=== PATIENT | male | born 1940 | race Caucasian/White ===

== ENCOUNTER 2021-01-20 09:07 | Inpatient (IN) ==
--- NOTE | 2021-01-20 09:34 | Emergency Department Note ---
History of Present Illness General Chief complaint: Cardiac Assessment Stated complaint: CHF Time Seen by Provider: 01/20/21 09:20 Source: patient, family (Son who is at the bedside) and old records reviewed Mode of arrival: ambulatory Limitations: no limitations History of Present Illness Maximum Pain Intensity: 1 This patient is a 80-year-old male who comes in after having a weight gain of about 30 pounds over the last week or so. He says he is "swelling up. He was seen by his doctors PA and they sent him to the emergency department for admission. He is on Lasix he has not missed any dosages. His legs have gotten increasing swollen. His left leg is normally swollen chronically but it is twice the size is normal the right side leg is not normally swollen but now it swollen as well. Noted shortness of breath at rest but he has dyspnea on exertion particular when he bends and tries to tie his shoes. Denies abdominal pain. No blood or melena stool no fall or trauma. His abdomen is distended but not tender. Home Medications Medication Instructions Recorded Confirmed Type aspirin 81 mg tablet,delayed 81 mg PO DAILY tab 07/26/19 01/20/21 History release atorvastatin 10 mg tablet 10 mg PO DAILY #90 tab 07/26/19 01/20/21 History amiodarone 200 mg tablet 200 mg PO DAILY 06/05/20 01/20/21 History carvedilol 3.125 mg tablet 3.125 mg PO BID 06/05/20 01/20/21 History lisinopril 2.5 mg tablet 2.5 mg PO DAILY 06/05/20 01/20/21 History nitroglycerin 0.4 mg sublingual 0.4 mg SL Q5M PRN 06/05/20 01/20/21 History tablet cholecalciferol (vitamin D3) 25 1,000 unit PO DAILY cap 07/14/20 01/20/21 History mcg (1,000 unit) capsule furosemide 40 mg tablet 40 mg PO DAILY #90 tab 07/30/20 01/20/21 Rx cyanocobalamin (vitamin B-12) 500 mcg PO DAILY 01/20/21 01/20/21 History [Vitamin B-12] diphenhydramine-acetaminophen 1 tab PO HS PRN 01/20/21 01/20/21 History [Tylenol PM Extra Strength] oljasynd-xye-BA-lycopen-lutein 1 tab PO DAILY 01/20/21 01/20/21 History [Centrum Silver Men] omega-3 fatty acids [[place] 3] 1,000 mg PO DAILY 01/20/21 01/20/21 History vitamin B complex 1 tab PO DAILY 01/20/21 01/20/21 History Allergies Allergy/AdvReac Type Severity Reaction Status Date / Time No Known Allergies Allergy Verified 01/20/21 10:16 Past Med/Surg History Medical History (Updated 01/20/21 @ 16:35 by Mitch Carter MD) Cardiac arrest 09/2020 Coronary artery disease Dyslipidemia ICD (implantable cardioverter-defibrillator) in place Surgical History (Updated 01/20/21 @ 11:01 by Geraldo Connelly MD) History of arthroscopy of left knee History of inguinal hernia repair, bilateral History of umbilical hernia repair S/P aortic valve replacement with bioprosthetic valve Status post aorto-coronary artery bypass graft 1998 Social History (Updated 01/20/21 @ 11:02 by Geraldo Connelly MD) Smoking Status: Never smoker Hx Alcohol Use: No Hx Substance Use: No Preferred Language: [place] Zealander Communication Ability: Effective [place] Technician Required: No Beliefs That Will Affect Care: None Current Living Situation: Spouse Other Information That Helps Us Care for You: No Feels Safe at Home: Yes Safety Concerns: Feels Safe At This Time Assistive Devices: Cane, Glasses and Special Shoe Immunizations: Past medical history includes CHF. He is on chronic anticoagulation, he has a pacemaker. History lives at home independently Review of Systems A total of 10 systems reviewed and were otherwise negative Physical Exam Vital Signs Vital Signs - 24 hr 01/20/21 09:12 01/20/21 09:28 01/20/21 09:30 Temperature 36.5 C Temperature Source Oral Pulse Rate 103 H 60 60 Respiratory Rate 24 15 14 Blood Pressure 114/57 L Blood Pressure Mean 76 Pulse Oximetry 97 97 Oxygen Delivery Method Room Air Room Air Sepsis Recent Fever Within 48 Hours No Sepsis New/Unexplained Change in Mental Status No Sepsis Action Taken by Nursing No Action Required 01/20/21 10:00 01/20/21 10:30 Temperature Temperature Source Pulse Rate 60 60 Respiratory Rate 14 15 Blood Pressure Blood Pressure Mean Pulse Oximetry Oxygen Delivery Method Sepsis Recent Fever Within 48 Hours Sepsis New/Unexplained Change in Mental Status Sepsis Action Taken by Nursing General: Well developed well nourished older male who appears in no acute distress, breathing comfortably on room air. Normal speech HEENT: Normal cephalic atraumatic. Pupils are equal round and reactive to light. Extraocular movements are intact. Oropharynx is pink with moist mucous membranes. No swelling of the mouth lips or tongue. Neck: Supple with a midline trachea. No meningeal signs or stiffness, no JVD or bruits. No Stridor. Chest: Clear to auscultation bilaterally. No wheezes or rhonchi. No increased work of breathing. Pacemaker in left chest Heart: Regular rate and rhythm without murmurs or gallops. Abdomen: Soft nontender,. He is diffusely distended with a ventral hernia that is easily reducible and not red or warm or tender. Without rebound guarding or rigidity. No peritonitis Extremities: No cyanosis clubbing he has significant bilateral lower extremity edema left greater than right which is chronic. There is chronic skin breakdown and some mild redness of his lopez on the left with some oozing of clear fluid Spine/Back. Non tender to palpation. No CVA tenderness Skin: Good turgor without rashes. Neurologic exam: Cranial nerves two through 12 are intact. Motor and sensation are intact and symmetrical throughout. Course Administered Medications Discontinued Medications Furosemide (Furosemide 40 Mg/4 Ml Vial) 40 mg IV NOW STA Stop: 01/20/21 10:33 Last Admin: 01/20/21 13:12 Dose: 40 mg Documented by: [id number] Furosemide (Furosemide 40 Mg/4 Ml Vial) Confirm Administered Dose 40 mg IV .STK- MED ONE Stop: 01/20/21 13:11 Last Admin: 01/20/21 13:12 Dose: Not Given Documented by: [id number] Medical Decision Making Differential Diagnosis CHF, acute coronary syndrome, arrhythmia, infection, electrolyte or metabolic abnormality Medical Records Attestation: I reviewed the patient's medical records. Home Medications Current Medication List: was personally reviewed by me Laboratory Data Attestation: I reviewed the patient's lab results. Result diagrams: 01/20/21 09:28 01/20/21 09:28 Lab Results 01/20/21 01/20/21 01/20/21 Range/Units 09:28 09:28 09:28 WBC 7.47 (4.8-10.8) K/uL RBC 3.29 L (4.7-6.1) M/uL Hgb 11.7 L (14.0-18.0) g/dL Hct 35.2 L (42-52) % MCV 107.0 H (80-100) fL MCH 35.6 H (25-34) pg MCHC 33.2 (32-36) g/dL RDW Std Deviation 58.2 H (36.4-46.3) fL RDW Coeff of Patricia 14.8 H (11.5-14.5) % Plt Count 166 (130-400) K/uL MPV 11.0 H (7.4-10.4) fL Immature Gran % (Auto) 0.1 % Neut % (Auto) 72.4 % Lymph % (Auto) 13.4 % [place] % (Auto) 10.8 % Eos % (Auto) 3.2 % Baso % (Auto) 0.1 % Neut # (Auto) 5.40 (1.4-6.5) K/uL Lymph # (Auto) 1.00 L (1.2-3.4) K/uL [place] # (Auto) 0.81 H (0.11-0.59) K/uL Eos # (Auto) 0.24 (0-0.5) K/uL Baso # (Auto) 0.01 (0-0.2) K/uL Immature Gran # (Auto) 0.01 (0.00-0.02) K/uL PT 10.8 (9.0-12.0) Seconds INR 1.1 (0.9-1.1) APTT 28.6 (21.0-31.0) Seconds PTT Ratio 1.1 Sodium 140 (136-145) mmol/L Potassium 5.1 (3.5-5.1) mmol/L Chloride 110 H (98-107) mmol/L Carbon Dioxide 26 (21-32) mmol/L Anion Gap 4.0 (3-11) BUN 52 H (7-18) mg/dl Creatinine 2.43 H (0.6-1.4) mg/dl Est Cr Clr Drug Dosing 30.5 ml/min Est GFR ( Amer) 27.6 Est GFR (Non-Af Amer) 23.9 BUN/Creatinine Ratio 21.6 H (10-20) Glucose 87 (70-99) mg/dl Calcium 8.6 (8.5-10.1) mg/dl Total Bilirubin 0.6 (0.2-1) mg/dl AST 26 (15-37) U/L ALT 16 (12-78) U/L Alkaline Phosphatase 98 (45-117) U/L Troponin I < 0.015 (0-0.045) ng/ml NT-Pro-B Natriuret Pep 3438 H (0-1800) pg/ml Total Protein 6.4 (6.4-8.2) gm/dl Albumin 3.0 L (3.4-5.0) gm/dl Globulin 3.4 (2.5-4.0) gm/dl Albumin/Globulin Ratio 0.9 (0.9-2) TSH (0.300-4.500) uIu/ml Free T4 (0.8-1.6) ng/dl Random Cortisol mcg/dl 01/20/21 01/20/21 Range/Units 09:28 09:28 WBC (4.8-10.8) K/uL RBC (4.7-6.1) M/uL Hgb (14.0-18.0) g/dL Hct (42-52) % MCV (80-100) fL MCH (25-34) pg MCHC (32-36) g/dL RDW Std Deviation (36.4-46.3) fL RDW Coeff of Patricia (11.5-14.5) % Plt Count (130-400) K/uL MPV (7.4-10.4) fL Immature Gran % (Auto) % Neut % (Auto) % Lymph % (Auto) % [place] % (Auto) % Eos % (Auto) % Baso % (Auto) % Neut # (Auto) (1.4-6.5) K/uL Lymph # (Auto) (1.2-3.4) K/uL [place] # (Auto) (0.11-0.59) K/uL Eos # (Auto) (0-0.5) K/uL Baso # (Auto) (0-0.2) K/uL Immature Gran # (Auto) (0.00-0.02) K/uL PT (9.0-12.0) Seconds INR (0.9-1.1) APTT (21.0-31.0) Seconds PTT Ratio Sodium (136-145) mmol/L Potassium (3.5-5.1) mmol/L Chloride (98-107) mmol/L Carbon Dioxide (21-32) mmol/L Anion Gap (3-11) BUN (7-18) mg/dl Creatinine (0.6-1.4) mg/dl Est Cr Clr Drug Dosing ml/min Est GFR ( Amer) Est GFR (Non-Af Amer) BUN/Creatinine Ratio (10-20) Glucose (70-99) mg/dl Calcium (8.5-10.1) mg/dl Total Bilirubin (0.2-1) mg/dl AST (15-37) U/L ALT (12-78) U/L Alkaline Phosphatase (45-117) U/L Troponin I (0-0.045) ng/ml NT-Pro-B Natriuret Pep (0-1800) pg/ml Total Protein (6.4-8.2) gm/dl Albumin (3.4-5.0) gm/dl Globulin (2.5-4.0) gm/dl Albumin/Globulin Ratio (0.9-2) TSH 241.000 H (0.300-4.500) uIu/ml Free T4 0.20 L (0.8-1.6) ng/dl Random Cortisol 21.04 mcg/dl Imaging Data Attestation: I personally reviewed and interpreted this imaging study as follows: My Impression: Chest xray: CHF with pleural effusions Radiologist's Impression: XR chest 1V portable CLINICAL HISTORY: Atypical chest pain COMPARISON STUDY: No previous studies for comparison. FINDINGS: The heart is enlarged. There are postsurgical changes of a midline sternotomy. There is a left subclavian pacer/defibrillator present. There is mild residual thickening likely secondary to mild pulmonary vascular congestion. Small bilateral pleural effusions are present. There are basilar opacities likely representing compressive atelectasis although an infectious/inflammatory processes could appear similar[ IMPRESSION: 1. Cardiac megaly and radiographic evidence of mild congestive failure/fluid overload with small bilateral pleural effusions 2. Basilar opacity statistically representing compressive atelectasis ECG Data Attestation: I personally reviewed and interpreted this ECG as follows: Indication: + SOB/dyspnea and + weakness Rate (beats per minute): 60 Rhythm: + other (Ventricular paced rhythm) ECG Intervals/blocks: + IVCD ECG Campbell: + Normal ECG ST segments: + Normal ST segments ECG Findings: no PACs and no PVCs Comparison ECG Date: from (12/11/03) Change: the following changes noted (Paced rhythm has replaced normal sinus) MDM Narrative This patient comes in as described above. He was placed on a services engineer in room A3. Is here for treatment and evaluation of lower extremity edema and weight gain. He appears fluid overloaded. IV access was established, EKG ,chest x-ray and blood work was obtained. He was reassessed frequently. He was noted to be in congestive heart failure. His creatinine is also elevated at 2.43. He has nothing chest acute coronary syndrome. He was given Lasix 40 mg IV. I discussed case with Dr. Geraldo Connelly who will admit the patient for further inpatient treatment and evaluation. Continuous cardiac monitoring: Order was placed in the EMR for continuous cardiac monitoring Impression & Plan CHF (congestive heart failure), Lower extremity edema, Pacemaker, Acute renal insufficiency Discharge Plan Visit Data Chief Complaint: Cardiac Assessment Stated Complaint: CHF ED Provider: Mitch Carter Discharge Problem: CHF (congestive heart failure), Lower extremity edema, Pacemaker, Acute renal insufficiency Patient Disposition: Admitted As Inpatient Discharge Instructions Interventions: ED Discharge Assessment Last Done: 01/20/21 13:24 Discharge Problem: CHF (congestive heart failure) Qualifiers: Heart failure type: unspecified Heart failure chronicity: acute on chronic Qualified Code(s): I50.9 - Heart failure, unspecified
[2021-01-20 09:48] LABS: Basophils # (auto) 0.01 K/uL (0-0.2); Basophils % (auto) 0.1 %; Eosinophils # (auto) 0.24 K/uL (0-0.5); Eosinophils % (auto) 3.2 %; Hematocrit (blood only) 35.2 % (42-52); Hemoglobin 11.7 g/dL (14.0-18.0); Immature Granulocytes # (auto) 0.01 K/uL (0.00-0.02); Immature Granulocytes % (auto) 0.1 %; Lymphocytes % (auto) 13.4 %; Mean Corpuscular Hemoglobin 35.6 pg (25-34); Mean Corpuscular Hgb Conc 33.2 g/dL (32-36); Monocytes # (auto) 0.81 K/uL (0.11-0.59); Monocytes % (auto) 10.8 %; Neutrophils % (auto) 72.4 %; Platelet Count 166 K/uL (130-400); RDW Coefficient of Variation 14.8 % (11.5-14.5); RDW Standard Deviation 58.2 fL (36.4-46.3); Red Blood Count 3.29 M/uL (4.7-6.1); White Blood Count 7.47 K/uL (4.8-10.8)
--- NOTE | 2021-01-20 09:53 | XRay Report ---
XR chest 1V portable CLINICAL HISTORY: Atypical chest pain COMPARISON STUDY: No previous studies for comparison. FINDINGS: The heart is enlarged. There are postsurgical changes of a midline sternotomy. There is a l eft subclavian pacer/defibrillator present. There is mild residual thickening likely secondary to mil d pulmonary vascular congestion. Small bilateral pleural effusions are present. There are basilar opa cities likely representing compressive atelectasis although an infectious/inflammatory processes coul d appear similar[ IMPRESSION: 1. Cardiac megaly and radiographic evidence of mild congestive failure/fluid overload with small bila teral pleural effusions 2. Basilar opacity statistically representing compressive atelectasis ACT 112: Negative or not required by law. Electronically signed by: Roney Casas M.D. 01/20/2021 9:52 AM
[2021-01-20 10:02] LABS: INR 1.1 (0.9-1.1); Partial Thromboplastin Ratio 1.1; Partial Thromboplastin Time 28.6 Seconds (21.0-31.0); Prothrombin Time 10.8 Seconds (9.0-12.0)
[2021-01-20 10:03] LABS: Alanine Aminotransferase 16 U/L (12-78); Aspartate Aminotransferase 26 U/L (15-37); BUN Creatinine Ratio 21.6 (10-20); Blood Urea Nitrogen 52 mg/dl (7-18); Calcium 8.6 mg/dl (8.5-10.1); Carbon Dioxide 26 mmol/L (21-32); Chloride 110 mmol/L (98-107); Creatinine Clr Calc Pharmacy 30.5 ml/min; Est GFR (African American) 27.6; Est GFR (Non-African American) 23.9; Glucose 87 mg/dl (70-99); Potassium 5.1 mmol/L (3.5-5.1); Sodium 140 mmol/L (136-145)
[2021-01-20 10:08] LABS: Albumin Globulin Ratio 0.9 (0.9-2); Alkaline Phosphatase 98 U/L (45-117); Bilirubin,Total 0.6 mg/dl (0.2-1); Globulin 3.4 gm/dl (2.5-4.0); NT Pro B Type Natriuretic Pept 3438 pg/ml (0-1800); Total Protein 6.4 gm/dl (6.4-8.2); Troponin I < 0.015 ng/ml (0-0.045)
[2021-01-20] MEDS ORDERED: FUROSEMIDE 40 MG/4 ML VIAL IV STA (10:32)
--- NOTE | 2021-01-20 10:38 | History & Physical Report ---
Date of Service January 20, 2021 Assessment & Plan (1) Acute on chronic heart failure with preserved ejection fraction: Lasix 40 mg IV twice daily Daily weights Strict I's and O's Low-sodium, heart healthy, fluid restriction 1200 mL Consult cardiology and heart failure clinic (2) Acute kidney injury: Renal ultrasound negative for obstructive cause. UA + protein/Cr ratio pending Suspected cardiopulmonary (3) Primary hypothyroidism: New onset. Suspect secondary to amiodarone use. No myxedema coma signs or symptoms. Discussed with Dr Souza, recommended IV levothyroxine initially due to poor gut absorption with 12.5 IV mcg, switch to 25mcg PO daily once more euvolemic and discharge on 50 mcg daily Follow up TSH, free T4 in 4-6 weeks. (4) Ascites: Significant ascites appears out of proportion to other fluid overload will get ultrasound of his liver to rule out cirrhotic contribution to hypervolemia Will defer ascitic tap on admission as long as liver US unremarkable (5) Venous ulcer of lower extremity without varicose veins: Area marked to assess for increasing erythema suggestive of cellulitis Blood cultures taken (6) Edema of left lower extremity: L > R due to venous graft taken from this side Generalized anasarca favors liver/renal etiology as cause of hypervolemia (7) Coronary artery disease: Continue aspirin, carvedilol, atorvastatin. Lisinopril on hold due to acute renal failure (8) Dyslipidemia: Continue atorvastatin 10 mg p.o. daily (9) Macrocytic anemia: B12 and folate with a.m. 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 He reports increasing shortness of breath and fatigue for the past 2-3 weeks. Associated weight gain of 30-35 lb increase over same time period, bilateral leg swelling and abdominal distension. His left leg is usually larger than his right ever since his venous bypass graft was taken from that side. No chest pain, orthopnea, PND or palpitations. No fever, chills He also notes a water blister that appeared on his left lower extremity. Unknown how long he had this. His peeled off the skin 4 days ago and it has started forming granulation tissue around this. No significant worsening of erythema surrounding this, it does no track up leg but some spread of erythema with gravity posteriorly. Area marked in the ER. In the ER labs were concerning for EVETTE with CXR showing evidence of mild CHF. He was referred to medicine for admission and ongoing management of EVETTE, hypervolemia. Allergies Allergy/AdvReac Type Severity Reaction Status Date / Time No Known Allergies Allergy Verified 01/20/21 10:16 Home Medications Medication Instructions Recorded Confirmed Type aspirin 81 mg tablet,delayed 81 mg PO DAILY tab 07/26/19 01/20/21 History release atorvastatin 10 mg tablet 10 mg PO DAILY #90 tab 07/26/19 01/20/21 History amiodarone 200 mg tablet 200 mg PO DAILY 06/05/20 01/20/21 History carvedilol 3.125 mg tablet 3.125 mg PO BID 06/05/20 01/20/21 History lisinopril 2.5 mg tablet 2.5 mg PO DAILY 06/05/20 01/20/21 History nitroglycerin 0.4 mg sublingual 0.4 mg SL Q5M PRN 06/05/20 01/20/21 History tablet cholecalciferol (vitamin D3) 25 1,000 unit PO DAILY cap 07/14/20 01/20/21 History mcg (1,000 unit) capsule furosemide 40 mg tablet 40 mg PO DAILY #90 tab 07/30/20 01/20/21 Rx cyanocobalamin (vitamin B-12) 500 mcg PO DAILY 01/20/21 01/20/21 History [Vitamin B-12] diphenhydramine-acetaminophen 1 tab PO HS PRN 01/20/21 01/20/21 History [Tylenol PM Extra Strength] myigxoko-ezw-NO-lycopen-lutein 1 tab PO DAILY 01/20/21 01/20/21 History [Centrum Silver Men] omega-3 fatty acids [[place] 3] 1,000 mg PO DAILY 01/20/21 01/20/21 History vitamin B complex 1 tab PO DAILY 01/20/21 01/20/21 History Past Med/Surg History Medical History (Updated 01/20/21 @ 16:35 by Mitch Carter MD) Cardiac arrest 09/2020 Coronary artery disease Dyslipidemia ICD (implantable cardioverter-defibrillator) in place Surgical History (Updated 01/20/21 @ 11:01 by Geraldo Connelly MD) History of arthroscopy of left knee History of inguinal hernia repair, bilateral History of umbilical hernia repair S/P aortic valve replacement with bioprosthetic valve Status post aorto-coronary artery bypass graft 1998 Social History (Updated 01/20/21 @ 11:02 by Geraldo Connelly MD) Smoking Status: Never smoker Hx Alcohol Use: No Hx Substance Use: No Preferred Language: Frisian Communication Ability: Effective Recruiting Assistant Required: No Beliefs That Will Affect Care: None Current Living Situation: Spouse Other Information That Helps Us Care for You: No Feels Safe at Home: Yes Safety Concerns: Feels Safe At This Time Assistive Devices: Walker Review of Systems Review of Systems: All systems reviewed & are unremarkable except as noted in HPI & below Genitourinary: no dysuria, no difficulty urinating, no urinary frequency, no urinary hesitancy and no decreased urination Physical Exam Constitutional: well developed and well nourished; no acute distress Eyes: PERRL, conjunctivae normal, anicteric sclerae ENMT: external ear and nose normal, oropharynx normal Neck: trachea midline Thyroid: no thyromegaly Respiratory: normal respiratory effort; no respiratory distress Auscultation: + diminished lung sounds (bibasal); no crackles and no wheezes Cardiovascular: Rate/Rhythm: regular rate and regular rhythm Heart Sounds: no murmur Vessels: + JVD Extremities: normal capillary refill, + pedal edema (L 3+ > R 2+ to abdomen) and + edema (Generalized anasarca) Gastrointestinal (Abdomen): Inspection/Auscultation: + abdomen distended and normal bowel sounds Percussion/Palpation: abdomen soft; abdomen nontender, no guarding and abdomen not rigid Musculoskeletal: no cyanosis or clubbing, extremities motor strength 5/5 (limited movement of LLE due to size) Skin: + ulcer (granulation tissue over 5cm circular ulcer LLE) and + erythema (mild surrounding LLE ulcer marked, tracking with gravity only) Neurologic: moves all extremities and awake; not confused Psychiatric: A+Ox3, euthymic affect Genitourinary: no CVA tenderness Results & Data Results & Data ([facility]) Vital Signs (Past 12 Hours) Vital Signs Temp Pulse Resp BP Pulse Ox 01/20/21 09:30 97 01/20/21 09:12 36.5 C 103 H 24 114/57 L 97 Diagnostic Findings XR chest 1V portable IMPRESSION: 1. Cardiac megaly and radiographic evidence of mild congestive failure/fluid overload with small bilateral pleural effusions 2. Basilar opacity statistically representing compressive atelectasis Medications Administered ER Medications given: None ECG Indication: SOB/dyspnea Rate (beats per minute): 60 Findings: + other, + paced rhythm (Ventricular-paced) and + prolonged QT (518 ms) Comparison ECG Date: from (Dec 11, 2003) Change: the following changes noted (Paced rhythm replaced sinus rhythm) Code Status & VTE Plan Code Status Full VTE Prophylaxis Plan VTE Prophylaxis will be ordered: Yes PG Care Time/CCT Total # of Minutes Spent Total Time Spent with Patient: Total time spent is greater than 50% in coordination of care (as documented) at patient's floor/unit and/or counseling patient: Coding Level of Care Code 78703 Initial Inpt Care Lvl 3 Diagnoses Acute on chronic heart failure with preserved ejection fraction I50.33 Acute kidney injury N17.9 Primary hypothyroidism E03.9 Ascites R18.8 Venous ulcer of lower extremity without varicose veins I87.2; L97.909 Edema of left lower extremity R60.0 Coronary artery disease I25.10 Dyslipidemia E78.5 Macrocytic anemia D53.9 Renal cyst, right N28.1 Abnormal ultrasound of bladder R93.41 DVT prophylaxis Z29.9
[2021-01-20 12:17] LABS: T4 Free Thyroxine 0.2 ng/dl (0.8-1.6)
--- NOTE | 2021-01-20 12:27 | Ultrasound Report ---
US venous doppler LE LT CLINICAL HISTORY: Left leg swelling COMPARISON STUDY: No previous studies for comparison. FINDINGS: Real-time and color flow Doppler imaging were performed. Flow was seen within the femoral, popliteal and calf veins with no intraluminal thrombus demonstrated. The saphenous vein is patent.. T here is a left popliteal cyst measuring 76 x 36 x 20 mm. There is prominent superficial edema within the left leg. IMPRESSION: 1. No evidence of left lower extremity DVT. 2. Left popliteal cyst ACT 112: Negative or not required by law. Electronically signed by: Roney Casas M.D. 01/20/2021 12:25 PM
--- NOTE | 2021-01-20 12:35 | Ultrasound Report ---
EXAMINATION: RENAL ULTRASOUND CLINICAL HISTORY: Acute renal insufficiency COMPARISON STUDY: FINDINGS: The right kidney measures 7.4 cm. The left kidney measures 10.8 cm. There is no evidence o f hydronephrosis. There is a 4.5 cm right renal cyst Neither ureteral jet was visualized. There is a 19 mm nonspecific posterior bladder nodule. There is moderate ascites. IMPRESSION : 1. Moderate ascites 2. No evidence of hydronephrosis 3. 4.5 cm right renal cyst 4. Nonspecific 19 mm posterior bladder nodule. ACT 112: Negative or not required by law. Electronically signed by: Roney Casas M.D. 01/20/2021 12:34 PM
[2021-01-20] MEDS ORDERED: FUROSEMIDE 40 MG/4 ML VIAL IV ONE (13:10)
[2021-01-20] MEDS ORDERED: ACETAMINOPHEN 325 MG TAB PO PRN (14:03)
--- NOTE | 2021-01-20 14:49 | XCELERA ---
[id number]
--- NOTE | 2021-01-20 15:26 | Electrocardiogram Report ---
Test Reason : Blood Pressure : / mmHG Vent. Rate : 060 BPM Atrial Rate : 052 BPM P-R Int : 000 ms QRS Dur : 164 ms QT Int : 518 ms P-R-T Axes : 000 037 241 degrees QTc Int : 518 ms Ventricular-paced rhythm Abnormal ECG When compared with ECG of 11-DEC-2003 07:34, Electronic ventricular pacemaker has replaced Sinus rhythm Confirmed by Jose Hernandez [id number] on 01/20/2021 3:25:57 PM Referred By: Jose Hernandez Confirmed By:Jose Hernandez
[2021-01-20] MEDS ORDERED: FUROSEMIDE 40 MG/4 ML VIAL IV SCH (17:00)
[2021-01-20] MEDS ORDERED: LEVOTHYROXINE SODIUM 12.5 MCG in SYRINGE 0 ML IV ONE (17:15)
[2021-01-20] MEDS: FUROSEMIDE 40 MG in SYRINGE 0 ML IV SCH (17:39)
[2021-01-20] MEDS ORDERED: ACETAMINOPHEN 500 MG TAB PO PRN (21:00)
[2021-01-20] MEDS ORDERED: diphenhydrAMINE Capsule 25 MG CAP PO PRN (21:00)
[2021-01-20 21:01] LABS: Appearance Urine Clear (Clear); Bilirubin Urine Negative (Negative); Blood Urine Negative (Negative); Color Urine Yellow; Glucose Urine UA Negative (Negative); Ketones Urine Negative (Negative); Leukocyte Esterase Urine Negative (Negative); Nitrite Urine Negative (Negative); Protein Urine Negative (Negative); Specific Gravity Urine 1.011 (1.000-1.030); Urobilinogen Urine Negative (Negative)
[2021-01-20 21:18] LABS: Total Protein Urine Random < 5.0 mg/dl (0-11.9)
[2021-01-20] MEDS: carvediloL 3.125 MG TAB PO SCH (22:19)
[2021-01-20] MEDS: HEPARIN SOD 5,000 UNIT/0.5 ML VIAL SQ SCH (22:19)
[2021-01-21] MEDS: HEPARIN SOD 5,000 UNIT/0.5 ML VIAL SQ SCH (06:29)
--- NOTE | 2021-01-21 07:18 | Ultrasound Report ---
US liver HISTORY: 80 years-old Male ascites acute right upper quadrant abdominal pain with ascites COMPARISON: Renal ultrasound of same day TECHNIQUE: Multiple real-time sonographic images of the abdominal right upper quadrant were obtained assessing grayscale appearance and color flow FINDINGS: Pancreas is obscured by bowel gas. There is suggestion of a transient reducible upper abdominal wall bowel containing hernia within the upper mid abdomen. Cirrhotic morphology of the liver. No hepatic m ass lesion identified. Common bile duct is normal measuring 4 mm. No intrahepatic delayed ductal dila tion. Mildly contracted gallbladder wall measuring in the upper limits of normal at 3 mm. No shadowin g cholelithiasis. Sonographic Cuellar sign reported as negative. Moderate abdominal ascites. There is a cyst of the inferior pole right kidney measuring 4.5 cm. No hydronephrosis. IMPRESSION: 1. Cirrhotic liver with moderate abdominal ascites. 2. No cholelithiasis or sonographic evidence of acute cholecystitis. 3. No biliary ductal dilation. ACT 112: Negative or not required by law. The above report was generated using voice recognition software. It may contain grammatical, syntax o r spelling errors. Electronically signed by: Chris Degroot M.D. 01/21/2021 7:16 AM
[2021-01-21 07:21] LABS: Basophils # (auto) 0.01 K/uL (0-0.2); Basophils % (auto) 0.2 %; Eosinophils # (auto) 0.18 K/uL (0-0.5); Eosinophils % (auto) 3.8 %; Hematocrit (blood only) 34.7 % (42-52); Hemoglobin 11.9 g/dL (14.0-18.0); Immature Granulocytes # (auto) 0.01 K/uL (0.00-0.02); Immature Granulocytes % (auto) 0.2 %; Lymphocytes % (auto) 14.7 %; Mean Corpuscular Hemoglobin 36.4 pg (25-34); Mean Corpuscular Hgb Conc 34.3 g/dL (32-36); Mean Corpuscular Volume 106.1 fL (80-100); Mean Platelet Volume 11.1 fL (7.4-10.4); Monocytes # (auto) 0.45 K/uL (0.11-0.59); Monocytes % (auto) 9.5 %; Neutrophils % (auto) 71.6 %; Platelet Count 120 K/uL (130-400); RDW Coefficient of Variation 14.9 % (11.5-14.5); RDW Standard Deviation 58.3 fL (36.4-46.3); Red Blood Count 3.27 M/uL (4.7-6.1); White Blood Count 4.75 K/uL (4.8-10.8)
--- NOTE | 2021-01-21 07:28 | Ultrasound Report ---
ULTRASOUND OF THE THYROID GLAND CLINICAL HISTORY: Hypothyroidism. COMPARISON STUDY: No priors. TECHNIQUE: Real-time, grayscale, and color flow sonography of the thyroid gland is performed utilizin g a high-frequency linear transducer. Images are reviewed in the transverse and longitudinal planes. FINDINGS: Right lobe: The right lobe of the thyroid gland is normal in size and homogeneous in echotexture, kelsea suring 5.0 x 2.6 x 2.1 cm. No significant hyperemia is seen on color imaging. Left lobe: The left lobe of the thyroid gland is normal in size and homogeneous in echotexture, measu ring 4.2 x 1.8 x 2.1 cm. No significant hyperemia is seen on color imaging. Isthmus: The thyroid isthmus is thickened, measuring 0.8 cm in AP diameter. IMPRESSION: Unremarkable sonographic evaluation of the thyroid gland. ACT 112: Negative or not required by law. Electronically signed by: Beto Goldman M.D. 01/21/2021 7:27 AM
[2021-01-21] MEDS: CYANOCOBALAMIN 500 MCG TABLET (VITAMIN B-12) PO SCH (07:42)
[2021-01-21] MEDS: FUROSEMIDE 40 MG in SYRINGE 0 ML IV SCH ×2 (07:42→19:31)
[2021-01-21] MEDS: VITAMIN B COMPLEX TAB PO SCH (07:43)
[2021-01-21] MEDS: OMEGA-3 (PURIFIED FISH OIL) 1 GM CAP PO SCH (07:43)
[2021-01-21] MEDS: ATORVASTATIN 10 MG TAB PO SCH (07:43)
[2021-01-21] MEDS: ASPIRIN 81 MG ECTAB PO SCH (07:43)
[2021-01-21] MEDS: CHOLECALCIFEROL 1,000 UNITS 25 MCG TAB PO SCH (07:43)
[2021-01-21] MEDS: carvediloL 3.125 MG TAB PO SCH ×2 (07:43→21:14)
[2021-01-21] MEDS: CEROVITE ADV FORMULA TAB PO SCH (07:43)
[2021-01-21 07:56] LABS: BUN Creatinine Ratio 22.8 (10-20); Calcium 8.8 mg/dl (8.5-10.1); Est GFR (African American) 28.9
[2021-01-21 08:19] LABS: Folate (Folic Acid) 11.2 ng/ml (>5.38)
[2021-01-21] MEDS ORDERED: AMIODARONE 200 MG TAB PO SCH (09:00)
[2021-01-21] MEDS ORDERED: FUROSEMIDE 40 MG in SYRINGE 0 ML IV SCH (09:00)
[2021-01-21] MEDS ORDERED: FUROSEMIDE 40 MG/4 ML VIAL IV SCH (09:00)
--- NOTE | 2021-01-21 10:02 | Cardiology Progress Note ---
Date of Service January 21, 2021 Assessment & Plan (1) Acute on chronic systolic (congestive) heart failure: -diuresing on Lasix 40 mg IV b.i.d.. -subjectively improved. -continue carvedilol, consider up titration during this hospitalization. (2) Coronary artery disease: -s/p CABG x1 in February 1999 -basal inferior wall motion abnormality noted on echocardiogram. -continue aspirin and atorvastatin (3) Ischemic cardiomyopathy: -ejection fraction mildly depressed at 45-50%. -lisinopril currently on hold due to renal insufficiency. (4) S/P aortic valve replacement with bioprosthetic valve: -bioprosthetic aortic valve and ascending thoracic aortic repair in February 1999. -properly functioning prosthesis on current echocardiogram. (5) ICD (implantable cardioverter-defibrillator) in place: -placed in September 2019 in [place]. -proper function in device Clinic August 2020. -placed for presumed ventricular dysrhythmia, details unknown. Admission and Anticipated Discharge Date Admission Date: January 20, 2021 Subjective The patient is resting comfortably in bed complaints of chest pain or dyspnea. Was able to ambulate to the bathroom today minimal difficulty. Claims to have lost 13 lb since admission. Physical Exam Physical Exam: There is 1+ sacral edemaIn general this is a well-developed well-nourished white male in no acute distress. HEENT exam is negative. Neck reveals normal carotid upstrokes and transmitted murmur to the right carotid. No JVD. There is no thyromegaly. Cardiovascular exam reveals a regular rhythm with a 1/6 basal systolic ejection murmur. Valve sounds are crisp. No diastolic murmurs. Chest reveals a well-healed midline scar. Lungs are clear without rales, rhonchi, or wheezes. Abdomen is soft without bruits. There is 1+ sacral edema. Extremities reveal significant pitting and nonpitting edema of the left lower extremity. Several dressings noted on the left lower extremity. There is 1+ thigh edema bilaterally. Results & Data ([facility]) Vital Signs (Past 12 Hours) Vital Signs Temp Pulse Pulse Resp BP Pulse Ox 01/21/21 06:57 36.3 C L 62 18 100/57 L 93 01/21/21 03:40 36.3 C L 72 18 101/59 L 94 01/20/21 23:14 36.3 C L 61 20 105/58 L 96 01/20/21 23:11 60 01/20/21 22:20 36.3 C L 112 H 18 115/72 Diagnostic Findings compliance monitor notes appropriate ventricular pacing. PG Care Time/CCT Total # of Minutes Spent Total Time Spent with Patient: Total time spent is greater than 50% in coordination of care (as documented) at patient's floor/unit and/or counseling patient: Coding Level of Care Code 36815 Subseq Hosp Care Lvl 3 Diagnoses Acute on chronic systolic (congestive) heart failure I50.23 Coronary artery disease I25.10 Ischemic cardiomyopathy I25.5 S/P aortic valve replacement with bioprosthetic valve Z95.3 ICD (implantable cardioverter-defibrillator) in place Z95.810
[2021-01-21] MEDS ORDERED: ALBUMIN 5% 250 ML IV ONE (12:02)
[2021-01-21 12:59] LABS: INR 1.1 (0.9-1.1); Prothrombin Time 10.9 Seconds (9.0-12.0)
[2021-01-21 13:14] LABS: Alanine Aminotransferase 16 U/L (12-78); Albumin Level 2.9 gm/dl (3.4-5.0); Alkaline Phosphatase 93 U/L (45-117); Aspartate Aminotransferase 23 U/L (15-37); Bilirubin Direct < 0.1 mg/dl (0-0.2); Bilirubin,Total 0.5 mg/dl (0.2-1); Total Protein 6.1 gm/dl (6.4-8.2)
--- NOTE | 2021-01-21 14:54 | Ultrasound Report ---
US paracentesis abd w/image CLINICAL HISTORY: 80 years-old Male with ascites. Cirrhosis with ascites COMPARISON: Abdominal ultrasound 01/20/2021 PROCEDURE: The procedure was explained to the patient in the care including the benefits and possible risks/complications. The patient gave verbal understanding and written consent was obtained. A time -out was performed prior to the start of the procedure. The patient was placed on the ultrasound table in the supine position. Using ultrasound guidance, an appropriate procedure site in the right lower abdomen was marked. This area was then prepped and drap ed in the usual sterile fashion. Local anesthesia was achieved within 1% lidocaine. An 8-[place] cente sis catheter was then inserted. Approximately 5.0 liters of clear, yellowish fluid was removed and 1 L was sent to the lab for analysis. The catheter was removed and external pressure was held to achieve hemostasis. A sterile dressing was applied to the procedure site. The patient tolerated the procedure well without immediate complicati ons. IMPRESSION: Successful ultrasound-guided paracentesis with removal of 5 L ascitic fluid ACT 112: Negative or not required by law. The above report was generated using voice recognition software. It may contain grammatical, syntax o r spelling errors. Electronically signed by: Chris Degroot M.D. 01/21/2021 2:53 PM
--- NOTE | 2021-01-21 15:08 | Hospitalist Progress Note ---
Date of Service January 21, 2021 Assessment & Plan (1) Acute systolic CHF (congestive heart failure): Lasix 40 mg IV twice daily Daily weights Strict I's and O's Low-sodium, heart healthy, fluid restriction 1200 mL Cardio consulting Cont coreg, lasix 40 IV bid, KENNY on hold Echo with EF 45% (2) Acute kidney injury: Renal ultrasound negative for obstructive cause. UA + protein/Cr ratio pending Suspected cardiopulmonary 3-4 Creatinine 2.34 up from 1.2 baseline continuing diuresis, albumin given will need nephrology if no improvement (3) Primary hypothyroidism: New onset. Suspect secondary to amiodarone use. No myxedema coma signs or symptoms. Discussed with Dr Souza, recommended IV levothyroxine initially due to poor gut absorption with 12.5 IV mcg, switch to 25mcg PO daily once more euvolemic and discharge on 50 mcg daily Follow up TSH, free T4 in 4-6 weeks. US thyroid was normal (4) Ascites: Significant ascites appears out of proportion to other fluid overload will get ultrasound of his liver to rule out cirrhotic contribution to hypervolemia Will defer ascitic tap on admission as long as liver US unremarkable 3-4 paracentesis with fluid studies cell count and diff albumin cytology 5 L were removed -- will give albumin 8g / L which is 40 grams (5) Cirrhosis: RUQ ultrasound with cirrhotic liver with moderate abdominal ascites, no cholelithiasis or acute cholecystitis, no biliary ductal dilation 3-4 GI consult placed decompensated cirrhosis thought to be related to CHF SAAG < 1.1 so concern for nephrotic syndrome/cancer MELD score 15 continue lasix outpatient EGD for screening for varices (6) Cellulitis: left leg with redness and ulceration 3-4 starting cefazolin and vanc, 7 day course (7) Ventricular dysrhythmia: ICD in place discussed with Dr. Mary Zamorano will be in system for months No need for replacement antiarrythmic at this time (8) Venous ulcer of lower extremity without varicose veins: Area marked to assess for increasing erythema suggestive of cellulitis Blood cultures taken (9) Edema of left lower extremity: L > R due to venous graft taken from this side Generalized anasarca favors liver/renal etiology as cause of hypervolemia (10) Coronary artery disease: Continue aspirin, carvedilol, atorvastatin. Lisinopril on hold due to acute renal failure (11) Dyslipidemia: Continue atorvastatin 10 mg p.o. daily (12) Macrocytic anemia: B12 and folate with a.m. labs - if normal and renal function not improving consider SPEP/UPEP (13) Renal cyst, right: Follow-up with urology as an outpatient (14) Abnormal ultrasound of bladder: Nonspecific 19 mm posterior bladder nodule UA pending, urine cytology Follow-up with urology as an outpatient (15) DVT prophylaxis: Heparin 5000 units SQ every 8 hourly Admission and Anticipated Discharge Date Admission Date: January 20, 2021 Subjective Patient came in for leg edema and left leg wound. No fevers He denies sob Endorses abdominal distension that has gotten progressively worse over the past two weeks Does not have constipation, dry skin, hot or cold intolerance No difficulty with bowel or bladder No trouble eating, no nausea or vomiting Review of Systems Constitutional: no fever, no chills, no fatigue, no weakness, no anorexia, no weight loss and no weight gain Ear, Nose, Mouth, Throat: no nasal congestion, no sore throat and no dysphagia Respiratory: no cough and no dyspnea Cardiovascular: + edema; no chest pain, no dyspnea on exertion, no orthopnea and no palpitations Gastrointestinal: no abdominal pain, no nausea, no vomiting, no hematemesis, no dysphagia, no constipation, no diarrhea/loose stools, no blood in stools and no melena Genitourinary: no dysuria and no hematuria Musculoskeletal: no back pain, no joint pain, no myalgia and no muscle weakness Integumentary: + skin ulcer; no rash, no lesions, no erythema, no dry skin and no pruritus Neurologic: no falls, no localized weakness, no generalized weakness, no numbness, no paresthesia, no tremor(s) and no headache(s) Psychiatric: no depression, no suicidal ideation, no homicidal ideation and no anxiety Endocrine: no cold intolerance and no heat intolerance Hematologic / Lymphatic: no easy bleeding and no easy bruising Physical Exam Constitutional: well developed and well nourished; no acute distress Eyes: PERRL, conjunctivae normal, anicteric sclerae ENMT: Mouth: oral mucous membranes not dry Respiratory: normal respiratory effort; no respiratory distress and no labored breathing Auscultation: lungs clear to auscultation bilaterally; no crackles, no rales, no rhonchi and no wheezes Cardiovascular: Rate/Rhythm: regular rate and regular rhythm Heart Sounds: no murmur and no cardiac rub Vessels: normal peripheral pulses and radial pulses present; no JVD Extremities: no edema Gastrointestinal (Abdomen): Inspection/Auscultation: abdomen normal to inspection, + abdomen distended and normal bowel sounds Percussion/Palpation: abdomen soft and + ascites; abdomen nontender, no guarding, abdomen not rigid and no hepatosplenomegaly Musculoskeletal: Head/Neck/Chest: normocephalic and head atraumatic Spine: no cervical spinal tenderness, no cervical muscular tenderness, no thoracic spinal tenderness and no lumbar spinal tenderness Skin: no rashes, warm and dry + ulcer (left leg with surrounding erythema and central purulence) Neurologic: CN's II-XI intact bilaterally and moves all extremities Motor/Sensory: no tremor and no sensory deficit Psychiatric: Orientation: alert, oriented to person, oriented to place and oriented to time Apperance: appropriately groomed; not disheveled Affect: euthymic affect; no anxious affect and no tearful affect Genitourinary: no Zaman catheter Results & Data Results & Data ([facility]) Vital Signs (Past 12 Hours) Vital Signs Temp Pulse Resp BP BP Pulse Ox 01/21/21 13:30 36.3 C L 104/59 L 93 01/21/21 11:36 36.5 C 61 17 84/47 L 89/54 L 97 01/21/21 06:57 36.3 C L 62 18 100/57 L 93 01/21/21 03:40 36.3 C L 72 18 101/59 L 94 Laboratory Results Abnormal lab results 01/21/21 01/21/21 01/21/21 Range/Units 06:58 06:58 12:33 WBC 4.75 L (4.8-10.8) K/uL RBC 3.27 L (4.7-6.1) M/uL Hgb 11.9 L (14.0-18.0) g/dL Hct 34.7 L (42-52) % MCV 106.1 H (80-100) fL MCH 36.4 H (25-34) pg RDW Std Deviation 58.3 H (36.4-46.3) fL RDW Coeff of Patricia 14.9 H (11.5-14.5) % Plt Count 120 L (130-400) K/uL MPV 11.1 H (7.4-10.4) fL Lymph # (Auto) 0.70 L (1.2-3.4) K/uL Chloride 110 H (98-107) mmol/L BUN 53 H (7-18) mg/dl Creatinine 2.34 H (0.6-1.4) mg/dl BUN/Creatinine Ratio 22.8 H (10-20) Total Protein 6.1 L (6.4-8.2) gm/dl Albumin 2.9 L (3.4-5.0) gm/dl Medications Administered Current Inpatient Medications Acetaminophen (Acetaminophen 500 Mg Tab) 500 mg PO HS PRN PRN Reason: Sleep Stop: 02/19/21 20:59 Acetaminophen (Acetaminophen 325 Mg Tab) 650 mg PO Q4H PRN PRN Reason: Pain or Fever Stop: 02/19/21 14:02 Aspirin (Aspirin 81 Mg Ectab) 81 mg PO DAILY DAI Stop: 02/20/21 08:59 Last Admin: 01/21/21 07:43 Dose: 81 mg Documented by: Atorvastatin Calcium (Atorvastatin 10 Mg Tab) 10 mg PO DAILY DAI Stop: 02/20/21 08:59 Last Admin: 01/21/21 07:43 Dose: 10 mg Documented by: Carvedilol (Carvedilol 3.125 Mg Tab) 3.125 mg PO BID DAI Stop: 02/19/21 20:59 Last Admin: 01/21/21 07:43 Dose: 3.125 mg Documented by: Cyanocobalamin (Cyanocobalamin 500 Mcg Tablet (Vitamin B-12)) 500 mcg PO DAILY DAI Stop: 02/20/21 08:59 Last Admin: 01/21/21 07:42 Dose: 500 mcg Documented by: Diphenhydramine HCl (Diphenhydramine Capsule 25 Mg Cap) 25 mg PO HS PRN PRN Reason: Sleep Stop: 02/19/21 20:59 Fish Oil ([place]-3 (Purified Fish Oil) 1 Gm Cap) 1 gm PO DAILY DAI Stop: 02/20/21 08:59 Last Admin: 01/21/21 07:43 Dose: 1 gm Documented by: Heparin Sodium (Porcine) (Heparin Sod 5,000 Unit/0.5 Ml Vial) 5,000 units SQ Q8 DAI Stop: 02/19/21 21:59 Last Admin: 01/21/21 06:29 Dose: 5,000 units Documented by: Furosemide 40 mg/ Syringe 4 mls @ 4 mls/min IV BID17 DAI Stop: 02/19/21 16:59 Last Admin: 01/21/21 07:42 Dose: 4 mls/min Documented by: Levothyroxine Sodium 12.5 mcg/ (Syringe) 0.625 mls @ 2 mls/min IV Q3D@0900 [facility]; Protocol Stop: 02/21/21 08:59 Multivitamins/Minerals (Cerovite Adv Formula Tab) 1 tab PO DAILY DAI Stop: 02/20/21 08:59 Last Admin: 01/21/21 07:43 Dose: 1 tab Documented by: Vitamin B Complex (Vitamin B Complex Tab) 1 tab PO DAILY DAI Stop: 02/20/21 08:59 Last Admin: 01/21/21 07:43 Dose: 1 tab Documented by: Vitamin D (Cholecalciferol 1,000 Units 25 Mcg Tab) 1,000 units PO DAILY DAI Stop: 02/20/21 08:59 Last Admin: 01/21/21 07:43 Dose: 1,000 units Documented by: PG Care Time/CCT Total # of Minutes Spent Total Time Spent with Patient: Total time spent is greater than 50% in coordin ation of care (as documented) at patient's floor/unit and/or counseling patient: Coding Level of Care Code 81534 Subseq Hosp Care Lvl 3 Diagnoses Acute systolic CHF (congestive heart failure) I50.21 Acute kidney injury N17.9 Primary hypothyroidism E03.9 Ascites R18.8 Ascites type: other type Cirrhosis K74.60; R18.8 Hepatic cirrhosis type: unspecified hepatic cirrhosis Ascites presence: with ascites Cellulitis L03.116 Site of cellulitis: extremity Site of cellulitis of extremity: lower extremity Laterality: left Ventricular dysrhythmia I49.9 Venous ulcer of lower extremity without varicose veins I87.2; L97.909 Edema of left lower extremity R60.0 Coronary artery disease I25.10 Coronary Disease-Associated Artery/Lesion type: [place] artery [place] vs. transplanted heart: [place] heart Associated angina: without angina Dyslipidemia E78.5 Macrocytic anemia D53.9 Renal cyst, right N28.1 Abnormal ultrasound of bladder R93.41 DVT prophylaxis Z29.9 (1) Ascites Ascites type: other type Qualified Code(s): R18.8 - Other ascites (2) Coronary artery disease Coronary Disease-Associated Artery/Lesion type: [place] artery [place] vs. transplanted heart: [place] heart Associated angina: without angina Qualified Code(s): I25.10 - Atherosclerotic heart disease of [place] coronary artery without angina pectoris (3) Cellulitis Site of cellulitis: extremity Site of cellulitis of extremity: lower extremity Laterality: left Qualified Code(s): L03.116 - Cellulitis of left lower limb (4) Cirrhosis Hepatic cirrhosis type: unspecified hepatic cirrhosis Ascites presence: with ascites Qualified Code(s): K74.60 - Unspecified cirrhosis of liver; R18.8 - Other ascites
--- NOTE | 2021-01-21 15:24 | Gastrointestinal Consultation ---
Date of Consultation January 21, 2021 Assessment & Plan (1) Cirrhosis: (2) Ascites: cirrhosis decompensated with ascites, no evidence of GI bleeding nor encephalopathy. Likely etiology is cardiac from CHF but his SAAG is <1.1 which is not consistent with that; there is a small possibility of nephrotic syndrome in this clinical picture but I feel this is unlikely. No definitive evidence of infection. MELD-Na is 15 driven by Cr Recs: --continue lasix BID at this time, would be difficult to add spironolactone given his potassium of 5 --conservative management, optimize heart function --will need outpatient EGD for variceal screening Thank you for allowing me to participate in the care of this patient History of Present Illness Attending Physician: Herminia Daniels MD 80 yo male with hx CHF, CAD here with dyspnea and fatigue and weight gain. GI consulted for new onset cirrhosis with ascites. At this time, patient denies any n/v, hematemesis, hematochezia, melena, abdominal pains. He had a paracentesis today with 5L fluid ascites removed, SAAG < 1.1. abdominal US showed cirrhosis with ascites. currently on lasix BID. labs reviewed. Allergies Allergy/AdvReac Type Severity Reaction Status Date / Time No Known Allergies Allergy Verified 01/20/21 10:16 Home Medications Medication Instructions Recorded Confirmed Type aspirin 81 mg tablet,delayed 81 mg PO DAILY tab 07/26/19 01/20/21 History release atorvastatin 10 mg tablet 10 mg PO DAILY #90 tab 07/26/19 01/20/21 History amiodarone 200 mg tablet 200 mg PO DAILY 06/05/20 01/20/21 History carvedilol 3.125 mg tablet 3.125 mg PO BID 06/05/20 01/20/21 History lisinopril 2.5 mg tablet 2.5 mg PO DAILY 06/05/20 01/20/21 History nitroglycerin 0.4 mg sublingual 0.4 mg SL Q5M PRN 06/05/20 01/20/21 History tablet cholecalciferol (vitamin D3) 25 1,000 unit PO DAILY cap 07/14/20 01/20/21 History mcg (1,000 unit) capsule furosemide 40 mg tablet 40 mg PO DAILY #90 tab 07/30/20 01/20/21 Rx cyanocobalamin (vitamin B-12) 500 mcg PO DAILY 01/20/21 01/20/21 History [Vitamin B-12] diphenhydramine-acetaminophen 1 tab PO HS PRN 01/20/21 01/20/21 History [Tylenol PM Extra Strength] igntmjix-fiw-HW-lycopen-lutein 1 tab PO DAILY 01/20/21 01/20/21 History [Centrum Silver Men] omega-3 fatty acids [[place] 3] 1,000 mg PO DAILY 01/20/21 01/20/21 History vitamin B complex 1 tab PO DAILY 01/20/21 01/20/21 History Patient History Medical History Cardiac arrest 09/2020 Coronary artery disease Dyslipidemia ICD (implantable cardioverter-defibrillator) in place Surgical History History of arthroscopy of left knee History of inguinal hernia repair, bilateral History of umbilical hernia repair S/P aortic valve replacement with bioprosthetic valve Status post aorto-coronary artery bypass graft 1998 Social History Smoking Status: Never smoker Hx Alcohol Use: No Hx Substance Use: No Preferred Language: Italian Communication Ability: Effective Trench Dig[employer] Required: No Beliefs That Will Affect Care: None Current Living Situation: Spouse Other Information That Helps Us Care for You: No Feels Safe at Home: Yes Safety Concerns: Feels Safe At This Time Assistive Devices: Glasses Review of Systems Constitutional: no fever, no chills and no weight loss Eyes: as per Subjective / HPI Ear, Nose, Mouth, Throat: as per Subjective / HPI Respiratory: no dyspnea and no dyspnea on exertion Cardiovascular: no chest pain and no palpitations Gastrointestinal: as per Subjective / HPI Musculoskeletal: no joint pain and no swelling Integumentary: no rash and no lesions Neurologic: no numbness and no paresthesia Psychiatric: no depression and no anxiety Endocrine: no fatigue Hematologic / Lymphatic: no easy bleeding and no easy bruising Physical Exam Constitutional: WD/WN, vitals as above Eyes: EOM intact bilaterally Neck: normal visual inspection Respiratory: normal respiratory effort, lungs clear to auscultation Cardiovascular: RRR, no murmur, no edema Gastrointestinal (Abdomen): Inspection/Auscultation: abdomen normal to inspection; abdomen not distended Percussion/Palpation: abdomen soft and + ascites (mild-moderate); abdomen nontender and no hepatosplenomegaly no asterixis Musculoskeletal: Extremities: no cyanosis Gait: normal gait Skin: no rashes, warm and dry Neurologic: moves all extremities Psychiatric: A+Ox3, euthymic affect Results & Data ([facility]) Vital Signs (Past 12 Hours) Vital Signs Temp Pulse Resp BP BP Pulse Ox 01/21/21 15:08 36.3 C L 69 17 102/52 L 96 01/21/21 13:30 36.3 C L 104/59 L 93 01/21/21 11:36 36.5 C 61 17 84/47 L 89/54 L 97 01/21/21 06:57 36.3 C L 62 18 100/57 L 93 01/21/21 03:40 36.3 C L 72 18 101/59 L 94 PG Care Time/CCT Total # of Minutes Spent Total Time Spent with Patient: Total time spent is greater than 50% in coordination of care (as documented) at patient's floor/unit and/or counseling patient: Coding Level of Care Code 60366 Initial Inpt Care Lvl 3 Diagnoses Cirrhosis K74.60 Ascites R18.8
[2021-01-21] MEDS ORDERED: VANCOMYCIN CONSULT ACTIVE PRN (15:35)
[2021-01-21] MEDS ORDERED: VANCOMYCIN HCL 2,500 MG in SODIUM CHLORIDE 0.9% 500 ML IV STA (15:44)
[2021-01-21 15:49] LABS: Appearance Peritoneal Fluid CLEAR; Basophils, Fluid 0 %; Color Peritoneal Fluid YELLOW; Eosinophils, Fluid 0 %; Lymphocytes, Fluid 30 %; Mono,Macrophage,Mesothelial 45 %; Neutrophils, Fluid 25 %; RBC Peritoneal Fluid (A) < 3000 /uL; WBC Peritoneal Fluid (A) 156 /ul (0-300)
[2021-01-21] MEDS ORDERED: ceFAZolin 1000MG 1,000 MG/7.5 ML SYR IV SCH (16:00)
--- NOTE | 2021-01-21 16:02 | Pharmacy Report ---
Pharmacy Abx Initial Consult - Date of Service January 21, 2021 - Pharmacy Dosing Scope Date of Consult: 01/21/21 Consultation requested by: Dr. Daniels Pharmacy is consulted to initiate Vancomycin IV dosing therapy, order appropriate labs and adjust drug dose/frequency. - Subjective The patient is a 80 year old M admitted on 01/20/21 10:47. - Objective Height: 5 ft 11 in Weight: 112.4 kg Vital Signs (Past 12hrs): Vital Signs Temp Pulse Pulse Resp BP BP Pulse Ox 01/21/21 15:24 64 01/21/21 15:08 36.3 C L 69 17 102/52 L 96 01/21/21 13:30 36.3 C L 104/59 L 93 01/21/21 11:36 36.5 C 61 17 84/47 L 89/54 L 97 01/21/21 06:57 36.3 C L 62 18 100/57 L 93 Lab Results (24hrs): Laboratory Tests (24 Hours) 01/21/21 01/21/21 06:58 06:58 WBC 4.75 L Neut # (Auto) 3.40 Creatinine 2.34 H Est Cr Clr Drug Dosing 31.0 - Risk Factors for Resistance * None - Assessment & Plan Assessment 80 year old M admitted secondary to heart failure exacerbation * Found to have leg wound and cellulitis * Afebrile. No leukocytosis. SCr 2.34 with CrCl 31 mL/min. * Cultures with no growth to date * Started on vancomycin and cefazolin. Plan Vancomycin and Cefazolin for treatment of cellulitis Vancomycin IV * Loading dose: 2500 mg (22 mg/kg) * Maintenance dose: 1500 mg IV (13 mg/kg) every 24 hours * Goal trough level: 10 to 20 mcg/mL * No trough ordered as of yet in case renal fxn changes * A less than traditional dose and/or extended dosing interval has/have been selected due to likelihood of drug accumulation in obese patient/patient with h/o CKD. Cefazolin * Reduced to 1000 mg IV every 12 hours for eCrCl 11-34 mL/min per P&T protocol. Pharmacy will continue to follow and will adjust dose/frequency as necessary. Thank you.
[2021-01-21] MEDS: ALBUMIN 25% 12.5 GM/50 ML VIAL IV SCH ×4 (16:40→21:10)
[2021-01-22] MEDS: ceFAZolin 1000MG 1,000 MG/7.5 ML SYR IV SCH ×2 (04:48→16:40)
[2021-01-22 07:08] LABS: Hematocrit (blood only) 31.4 % (42-52); Hemoglobin 10.5 g/dL (14.0-18.0); Mean Corpuscular Hemoglobin 35.1 pg (25-34); Mean Corpuscular Hgb Conc 33.4 g/dL (32-36); Mean Platelet Volume 11.3 fL (7.4-10.4); Platelet Count 107 K/uL (130-400); RDW Coefficient of Variation 14.7 % (11.5-14.5); RDW Standard Deviation 56.6 fL (36.4-46.3); Red Blood Count 2.99 M/uL (4.7-6.1); White Blood Count 4.19 K/uL (4.8-10.8)
[2021-01-22 07:41] LABS: BUN Creatinine Ratio 22.8 (10-20); Calcium 8.5 mg/dl (8.5-10.1); Creatinine Clr Calc Pharmacy 31.6 ml/min; Est GFR (African American) 30.5; Est GFR (Non-African American) 26.3; Magnesium 2.6 mg/dl (1.8-2.4); Potassium 4.7 mmol/L (3.5-5.1)
[2021-01-22 07:42] LABS: Phosphorus 2.9 mg/dl (2.5-4.9)
[2021-01-22] MEDS: carvediloL 3.125 MG TAB PO SCH ×2 (08:46→20:59)
[2021-01-22] MEDS: ASPIRIN 81 MG ECTAB PO SCH (08:47)
[2021-01-22] MEDS: FUROSEMIDE 40 MG in SYRINGE 0 ML IV SCH ×2 (08:47→16:17)
[2021-01-22] MEDS: OMEGA-3 (PURIFIED FISH OIL) 1 GM CAP PO SCH (08:48)
[2021-01-22] MEDS: ATORVASTATIN 10 MG TAB PO SCH (08:48)
[2021-01-22] MEDS: CEROVITE ADV FORMULA TAB PO SCH (08:48)
[2021-01-22] MEDS: VITAMIN B COMPLEX TAB PO SCH (08:49)
[2021-01-22] MEDS: CHOLECALCIFEROL 1,000 UNITS 25 MCG TAB PO SCH (08:49)
[2021-01-22] MEDS: CYANOCOBALAMIN 500 MCG TABLET (VITAMIN B-12) PO SCH (08:49)
[2021-01-22] MEDS ORDERED: LEVOTHYROXINE SODIUM 12.5 MCG in SYRINGE 0 ML IV SCH (09:00)
--- NOTE | 2021-01-22 10:45 | Gastroenterology Progress Note ---
Date of Service January 22, 2021 Assessment & Plan (1) Cirrhosis: (2) Ascites: Cirrhosis, decompensated with ascites, no evidence of GI bleeding nor encephalopathy. Likely etiology is cardiac from CHF but his SAAG is <1.1. 1. Continue Lasix BID. 2. Await cytology as pending. 3. Conservative management, optimize heart function. 4. Outpatient EGD for variceal screening. Admission and Anticipated Discharge Date Admission Date: January 20, 2021 Supervising Physician Co-Signing Physician Notes I personally evaluated the patient and agree with the findings as documented by IGLESIA Villa Exam: abd: soft, nt, mild-moderate distention Subjective Patient reports feeling better after paracentesis. Denies any fevers and abdominal pain. No shortness of breath or chest pain. Continues Lasix 40 mg IV BID. Cytology from paracentesis is pending, peritoneal WBC 156. Review of Systems Respiratory: + dyspnea on exertion; no dyspnea Cardiovascular: no chest pain and no palpitations Gastrointestinal: as per Subjective / HPI Physical Exam Constitutional: WD/WN, vitals as above well developed and well nourished Respiratory: normal respiratory effort Auscultation: + diminished lung sounds Cardiovascular: Rate/Rhythm: regular rate and regular rhythm Heart Sounds: + murmur Gastrointestinal (Abdomen): Inspection/Auscultation: normal bowel sounds Percussion/Palpation: abdomen soft; abdomen nontender Psychiatric: A+Ox3, euthymic affect Results & Data Results & Data ([facility]) Vital Signs (Past 12 Hours) Vital Signs Temp Pulse Pulse Resp BP Pulse Ox 01/22/21 07:28 35.8 C L 60 18 111/60 98 01/22/21 04:00 36.7 C 62 18 99/64 L 94 01/21/21 23:00 36.6 C 60 68 18 109/55 L 93 Laboratory Results Abnormal lab results 01/21/21 01/22/21 01/22/21 Range/Units 12:33 06:39 06:39 WBC 4.19 L (4.8-10.8) K/uL RBC 2.99 L (4.7-6.1) M/uL Hgb 10.5 L (14.0-18.0) g/dL Hct 31.4 L (42-52) % MCV 105.0 H (80-100) fL MCH 35.1 H (25-34) pg RDW Std Deviation 56.6 H (36.4-46.3) fL RDW Coeff of Patricia 14.7 H (11.5-14.5) % Plt Count 107 L (130-400) K/uL MPV 11.3 H (7.4-10.4) fL Chloride 110 H (98-107) mmol/L BUN 51 H (7-18) mg/dl Creatinine 2.24 H (0.6-1.4) mg/dl BUN/Creatinine Ratio 22.8 H (10-20) Magnesium 2.6 H (1.8-2.4) mg/dl Total Protein 6.1 L (6.4-8.2) gm/dl Albumin 2.9 L (3.4-5.0) gm/dl PG Care Time/CCT Total # of Minutes Spent Total Time Spent with Patient: Total time spent is greater than 50% in coordination of care (as documented) at patient's floor/unit and/or counseling patient: Coding Level of Care Code 30888 Subseq Hosp Care Lvl 3 Diagnoses Cirrhosis K74.60; R18.8 Ascites presence: with ascites Hepatic cirrhosis type: unspecified hepatic cirrhosis Ascites R18.8 (1) Cirrhosis Ascites presence: with ascites Hepatic cirrhosis type: unspecified hepatic cirrhosis Qualified Code(s): K74.60 - Unspecified cirrhosis of liver; R18.8 - Other ascites
--- NOTE | 2021-01-22 13:33 | Cardiology Progress Note ---
Date of Service January 22, 2021 Assessment & Plan (1) Acute on chronic systolic (congestive) heart failure: -continue Lasix 40 mg IV b.i.d.. -subjectively improved. -continue carvedilol, consider up titration. (2) Coronary artery disease: -s/p CABG x1 in February 1999. -basal inferior wall motion abnormality on echocardiogram. -continue aspirin and atorvastatin. (3) Ischemic cardiomyopathy: -mild left ventricular dysfunction with ejection fraction of 45-50%. -lisinopril on hold due to renal insufficiency. (4) S/P aortic valve replacement with bioprosthetic valve: -bioprosthetic aortic valve and ascending thoracic aortic repair in February 1999. -properly functioning prosthesis on echocardiogram. (5) ICD (implantable cardioverter-defibrillator) in place: -September 2019 in [place]. -proper function in device clinic, August 2020. -placed for presumed ventricular dysrhythmia, details unknown. Admission and Anticipated Discharge Date Admission Date: January 20, 2021 Subjective The patient is resting comfortably in bed without complaints of chest pain or dyspnea. Explains that he has lost 25 lb since admission. Physical Exam Physical Exam: In general this is a well-developed well-nourished white male in no acute distress. HEENT exam is negative. Neck reveals normal carotid upstrokes and transmitted murmur to the right carotid. No JVD. There is no thyromegaly. Cardiovascular exam reveals a regular rhythm with a 1/6 basal systolic ejection murmur. Valve sounds are crisp. No diastolic murmurs. Chest reveals a well-healed midline scar. Lungs are clear without rales, rhonchi, or wheezes. Abdomen is soft without bruits. There is 1+ sacral edema. Extremities reveal significant pitting and nonpitting edema of the left lower extremity. Several dressings noted on the left lower extremity. There is 1+ thigh edema bilaterally. Results & Data ([facility] [place]) Vital Signs (Past 12 Hours) Vital Signs Temp Pulse Pulse Resp BP Pulse Ox 01/22/21 11:09 60 01/22/21 10:57 36.4 C L 60 19 102/62 97 01/22/21 07:28 35.8 C L 60 18 111/60 98 01/22/21 04:00 36.7 C 62 18 99/64 L 94 Diagnostic Findings monitoring specialist notes appropriate ventricular pacing. PG Care Time/CCT Total # of Minutes Spent Total Time Spent with Patient: Total time spent is greater than 50% in coordination of care (as documented) at patient's floor/unit and/or counseling patient: Coding Level of Care Code 35976 Subseq Hosp Care Lvl 3 Diagnoses Acute on chronic systolic (congestive) heart failure I50.23 Coronary artery disease I25.10 Coronary Disease-Associated Artery/Lesion type: [place] artery [place] vs. transplanted heart: [place] heart Associated angina: without angina Ischemic cardiomyopathy I25.5 S/P aortic valve replacement with bioprosthetic valve Z95.3 ICD (implantable cardioverter-defibrillator) in place Z95.810 (1) Coronary artery disease Coronary Disease-Associated Artery/Lesion type: [place] artery [place] vs. transplanted heart: [place] heart Associated angina: without angina Qualified Code(s): I25.10 - Atherosclerotic heart disease of [place] coronary artery without angina pectoris
[2021-01-22] MEDS ORDERED: VANCOMYCIN HCL 1,500 MG in SODIUM CHLORIDE 0.9% 500 ML IV SCH (16:00)
--- NOTE | 2021-01-22 17:56 | Hospitalist Progress Note ---
Date of Service January 22, 2021 Assessment & Plan (1) Acute systolic CHF (congestive heart failure): Lasix 40 mg IV twice daily Daily weights Strict I's and O's Low-sodium, heart healthy, fluid restriction 1200 mL Cardio consulting Cont coreg, lasix 40 IV bid, KENNY on hold Echo with EF 45% (2) Ascites: Significant ascites appears out of proportion to other fluid overload will get ultrasound of his liver to rule out cirrhotic contribution to hypervolemia Will defer ascitic tap on admission as long as liver US unremarkable 3-4 paracentesis with fluid studies cell count and diff albumin cytology 5 L were removed -- will give albumin 8g / L which is 40 grams 3-5 still with large ascites will place order for another paracentesis for tomorrow (3) Cellulitis: left leg with redness and ulceration 3-4 starting cefazolin and vanc, 7 day course 3-5 stop vanco, switch to keflex 500mg QID and observe (4) Acute kidney injury superimposed on CKD: Renal ultrasound negative for obstructive cause. UA + protein/Cr ratio pending Suspected cardiopulmonary 3-4 Creatinine 2.34 up from 1.2 baseline continuing diuresis, albumin given will need nephrology if no improvement 3-5 minimal improvement with diuresis, Cr 2.24 today will consult nephrology (5) Primary hypothyroidism: New onset. Suspect secondary to amiodarone use. No myxedema coma signs or symptoms. Discussed with Dr Souza, recommended IV levothyroxine initially due to poor gut absorption with 12.5 IV mcg, switch to 25mcg PO daily once more euvolemic and discharge on 50 mcg daily Follow up TSH, free T4 in 4-6 weeks. US thyroid was normal 3-5 start synthroid 50mcg PO daily, stop IV synthroid (6) Cirrhosis: RUQ ultrasound with cirrhotic liver with moderate abdominal ascites, no cholelithiasis or acute cholecystitis, no biliary ductal dilation 3-4 GI consult placed decompensated cirrhosis thought to be related to CHF SAAG < 1.1 so concern for nephrotic syndrome/cancer MELD score 15 continue lasix outpatient EGD for screening for varices (7) Ventricular dysrhythmia: ICD in place discussed with Dr. Mary Zamorano will be in system for months No need for replacement antiarrythmic at this time (8) Venous ulcer of lower extremity without varicose veins: Area marked to assess for increasing erythema suggestive of cellulitis Blood cultures taken (9) Edema of left lower extremity: L > R due to venous graft taken from this side Generalized anasarca favors liver/renal etiology as cause of hypervolemia (10) Coronary artery disease: Continue aspirin, carvedilol, atorvastatin. Lisinopril on hold due to acute renal failure (11) Dyslipidemia: Continue atorvastatin 10 mg p.o. daily (12) Macrocytic anemia: B12 and folate with a.m. labs - if normal and renal function not improving consider SPEP/UPEP (13) Renal cyst, right: Follow-up with urology as an outpatient (14) Abnormal ultrasound of bladder: Nonspecific 19 mm posterior bladder nodule UA pending, urine cytology Follow-up with urology as an outpatient (15) DVT prophylaxis: Heparin 5000 units SQ every 8 hourly Admission and Anticipated Discharge Date Admission Date: January 20, 2021 Subjective Left leg remains edematous, but improving Ulceration improving, less red, less pain Patient endorses feeling cold all the time, constipation with BM's every 2 days. He has been feeling this way for 3 years. OK with having another paracentesis. Abd pain is better after the first para. No trouble with diet, no nausea, no vomiting Review of Systems Constitutional: no fever, no chills, no fatigue, no weakness, no anorexia, no weight loss and no weight gain Ear, Nose, Mouth, Throat: no nasal congestion, no sore throat and no dysphagia Respiratory: no cough and no dyspnea Cardiovascular: + edema; no chest pain, no dyspnea on exertion, no orthopnea and no palpitations Gastrointestinal: no abdominal pain, no nausea, no vomiting, no hematemesis, no dysphagia, no constipation, no diarrhea/loose stools, no blood in stools and no melena ascites Genitourinary: no dysuria and no hematuria Musculoskeletal: no back pain, no joint pain, no myalgia and no muscle weakne ss Integumentary: no rash, no lesions, no skin ulcer, no erythema, no dry skin and no pruritus Neurologic: no falls, no localized weakness, no generalized weakness, no numbness, no paresthesia, no tremor(s) and no headache(s) Psychiatric: no depression, no suicidal ideation, no homicidal ideation and no anxiety Endocrine: no cold intolerance and no heat intolerance Hematologic / Lymphatic: no easy bleeding and no easy bruising Physical Exam Constitutional: well developed and well nourished; no acute distress voice is hoarse Eyes: PERRL, conjunctivae normal, anicteric sclerae ENMT: Mouth: oral mucous membranes not dry Respiratory: normal respiratory effort; no respiratory distress and no labored breathing Auscultation: lungs clear to auscultation bilaterally; no crackles, no rales, no rhonchi and no wheezes Cardiovascular: Rate/Rhythm: regular rate and regular rhythm Heart Sounds: no murmur and no cardiac rub Vessels: normal peripheral pulses and radial pulses present; no JVD Extremities: + edema (left leg 4+ lymphedema, right leg 1+) Gastrointestinal (Abdomen): Inspection/Auscultation: abdomen normal to inspection, + abdomen distended and normal bowel sounds Percussion/Palpation: abdomen soft and + ascites (less tense, but still large ascites); abdomen nontender, no guarding, abdomen not rigid and no hepatosplenomegaly Musculoskeletal: Head/Neck/Chest: normocephalic and head atraumatic Spine: no cervical spinal tenderness, no cervical muscular tenderness, no thoracic spinal tenderness and no lumbar spinal tenderness Skin: no rashes, warm and dry + ulcer (left leg with surrounding erythema and central purulence) Neurologic: CN's II-XI intact bilaterally and moves all extremities Motor/Sensory: no tremor and no sensory deficit Psychiatric: Orientation: alert, oriented to person, oriented to place and oriented to time Apperance: appropriately groomed; not disheveled Affect: euthymic affect; no anxious affect and no tearful affect Results & Data Results & Data ([facility]) Vital Signs (Past 12 Hours) Vital Signs Temp Pulse Pulse Resp BP Pulse Ox 01/22/21 14:47 35.4 C L 61 20 93/51 L 94 01/22/21 11:09 60 01/22/21 10:57 36.4 C L 60 19 102/62 97 01/22/21 07:28 35.8 C L 60 18 111/60 98 Laboratory Results Abnormal lab results 01/22/21 01/22/21 Range/Units 06:39 06:39 WBC 4.19 L (4.8-10.8) K/uL RBC 2.99 L (4.7-6.1) M/uL Hgb 10.5 L (14.0-18.0) g/dL Hct 31.4 L (42-52) % MCV 105.0 H (80-100) fL MCH 35.1 H (25-34) pg RDW Std Deviation 56.6 H (36.4-46.3) fL RDW Coeff of Patricia 14.7 H (11.5-14.5) % Plt Count 107 L (130-400) K/uL MPV 11.3 H (7.4-10.4) fL Chloride 110 H (98-107) mmol/L BUN 51 H (7-18) mg/dl Creatinine 2.24 H (0.6-1.4) mg/dl BUN/Creatinine Ratio 22.8 H (10-20) Magnesium 2.6 H (1.8-2.4) mg/dl Medications Administered Current Inpatient Medications Acetaminophen (Acetaminophen 500 Mg Tab) 500 mg PO HS PRN PRN Reason: Sleep Stop: 02/19/21 20:59 Acetaminophen (Acetaminophen 325 Mg Tab) 650 mg PO Q4H PRN PRN Reason: Pain or Fever Stop: 02/19/21 14:02 Aspirin (Aspirin 81 Mg Ectab) 81 mg PO DAILY [facility] Stop: 02/20/21 08:59 Last Admin: 01/22/21 08:47 Dose: 81 mg Documented by: Atorvastatin Calcium (Atorvastatin 10 Mg Tab) 10 mg PO DAILY [facility] Stop: 02/20/21 08:59 Last Admin: 01/22/21 08:48 Dose: 10 mg Documented by: Carvedilol (Carvedilol 3.125 Mg Tab) 3.125 mg PO BID [facility] Stop: 02/19/21 20:59 Last Admin: 01/22/21 08:46 Dose: 3.125 mg Documented by: Cephalexin HCl (Cephalexin 500 Mg Cap) 500 mg PO BID [facility]; Protocol Stop: 01/29/21 20:59 Cyanocobalamin (Cyanocobalamin 500 Mcg Tablet (Vitamin B-12)) 500 mcg PO DAILY [facility] Stop: 02/20/21 08:59 Last Admin: 01/22/21 08:49 Dose: 500 mcg Documented by: Diphenhydramine HCl (Diphenhydramine Capsule 25 Mg Cap) 25 mg PO HS PRN PRN Reason: Sleep Stop: 02/19/21 20:59 Fish Oil (Axson-3 (Purified Fish Oil) 1 Gm Cap) 1 gm PO DAILY DAI Stop: 02/20/21 08:59 Last Admin: 01/22/21 08:48 Dose: 1 gm Documented by: Heparin Sodium (Porcine) (Heparin Sod 5,000 Unit/0.5 Ml Vial) 5,000 units SQ Q8 DAI Stop: 02/19/21 21:59 Last Admin: 01/21/21 06:29 Dose: 5,000 units Documented by: Furosemide 40 mg/ Syringe 4 mls @ 4 mls/min IV [id number] DAI Stop: 02/19/21 16:59 Last Admin: 01/22/21 16:17 Dose: 4 mls/min Documented by: Levothyroxine Sodium (Levothyroxine Sodium 50 Mcg Tablet) 50 mcg PO DAILYBB DAI Stop: 02/22/21 06:29 Multivitamins/Minerals (Cerovite Adv Formula Tab) 1 tab PO DAILY DAI Stop: 02/20/21 08:59 Last Admin: 01/22/21 08:48 Dose: 1 tab Documented by: Vitamin B Complex (Vitamin B Complex Tab) 1 tab PO DAILY DAI Stop: 02/20/21 08:59 Last Admin: 01/22/21 08:49 Dose: 1 tab Documented by: Vitamin D (Cholecalciferol 1,000 Units 25 Mcg Tab) 1,000 units PO DAILY DAI Stop: 02/20/21 08:59 Last Admin: 01/22/21 08:49 Dose: 1,000 units Documented by: PG Care Time/CCT Total # of Minutes Spent Total Time Spent with Patient: Total time spent is greater than 50% in coordination of care (as documented) at patient's floor/unit and/or counseling patient: Coding Level of Care Code 90144 Subseq Hosp Care Lvl 2 Diagnoses Acute systolic CHF (congestive heart failure) I50.21 Ascites R18.8 Ascites type: other type Cellulitis L03.116 Site of cellulitis: extremity Site of cellulitis of extremity: lower extremity Laterality: left Acute kidney injury superimposed on CKD N17.9; N18.9 Primary hypothyroidism E03.9 Cirrhosis K74.60; R18.8 Hepatic cirrhosis type: unspecified hepatic cirrhosis Ascites presence: with ascites Ventricular dysrhythmia I49.9 Venous ulcer of lower extremity without varicose veins I87.2; L97.909 Edema of left lower extremity R60.0 Coronary artery disease I25.10 Coronary Disease-Associated Artery/Lesion type: [place] artery [place] vs. transplanted heart: [place] heart Associated angina: without angina Dyslipidemia E78.5 Macrocytic anemia D53.9 Renal cyst, right N28.1 Abnormal ultrasound of bladder R93.41 DVT prophylaxis Z29.9 (1) Ascites Ascites type: other type Qualified Code(s): R18.8 - Other ascites (2) Cirrhosis Hepatic cirrhosis type: unspecified hepatic cirrhosis Ascites presence: with ascites Qualified Code(s): K74.60 - Unspecified cirrhosis of liver; R18.8 - Other ascites (3) Cellulitis Site of cellulitis: extremity Site of cellulitis of extremity: lower extremity Laterality: left Qualified Code(s): L03.116 - Cellulitis of left lower limb (4) Coronary artery disease Coronary Disease-Associated Artery/Lesion type: [place] artery [place] vs. transplanted heart: [place] heart Associated angina: without angina Qualified Code(s): I25.10 - Atherosclerotic heart disease of [place] coronary artery without angina pectoris
[2021-01-22] MEDS: cephALEXin 500 MG CAP PO SCH (20:54)
[2021-01-23] MEDS: LEVOTHYROXINE SODIUM 50 MCG TABLET PO SCH (05:50)
[2021-01-23 06:55] LABS: Hematocrit (blood only) 35.2 % (42-52); Hemoglobin 12.1 g/dL (14.0-18.0); Mean Corpuscular Hemoglobin 36.1 pg (25-34); Mean Corpuscular Hgb Conc 34.4 g/dL (32-36); Mean Corpuscular Volume 105.1 fL (80-100); Mean Platelet Volume 11.1 fL (7.4-10.4); Platelet Count 131 K/uL (130-400); RDW Coefficient of Variation 14.5 % (11.5-14.5); RDW Standard Deviation 56.9 fL (36.4-46.3); Red Blood Count 3.35 M/uL (4.7-6.1); White Blood Count 4.86 K/uL (4.8-10.8)
[2021-01-23 07:27] LABS: BUN Creatinine Ratio 23.1 (10-20); Calcium 8.7 mg/dl (8.5-10.1); Creatinine Clr Calc Pharmacy 32.3 ml/min; Est GFR (African American) 31.5; Est GFR (Non-African American) 27.2; Magnesium 2.5 mg/dl (1.8-2.4); Potassium 4.4 mmol/L (3.5-5.1)
[2021-01-23] MEDS: FUROSEMIDE 40 MG in SYRINGE 0 ML IV SCH ×2 (08:07→17:16)
[2021-01-23] MEDS: carvediloL 3.125 MG TAB PO SCH ×2 (08:07→20:02)
[2021-01-23] MEDS: CEROVITE ADV FORMULA TAB PO SCH (08:07)
[2021-01-23] MEDS: cephALEXin 500 MG CAP PO SCH ×2 (08:07→20:02)
[2021-01-23] MEDS: OMEGA-3 (PURIFIED FISH OIL) 1 GM CAP PO SCH (08:08)
[2021-01-23] MEDS: CHOLECALCIFEROL 1,000 UNITS 25 MCG TAB PO SCH (08:08)
[2021-01-23] MEDS: ATORVASTATIN 10 MG TAB PO SCH (08:08)
[2021-01-23] MEDS: CYANOCOBALAMIN 500 MCG TABLET (VITAMIN B-12) PO SCH (08:08)
[2021-01-23] MEDS: ASPIRIN 81 MG ECTAB PO SCH (08:08)
[2021-01-23] MEDS: VITAMIN B COMPLEX TAB PO SCH (08:08)
--- NOTE | 2021-01-23 12:30 | Nephrology Consultation ---
Date of Consultation January 23, 2021 Assessment & Plan (1) Acute kidney injury superimposed on CKD: Baseline creatinine 1.36 mg/dL. Non-oliguric. US did not demonstrate obstruction. UA bland and microscopy acellular. Clinically presentation consistent with CRS or prerenal physiology. Document I/O's. Diuretics to encourage negative fluid balance. Daily weights. Repeat metabolic profile tomorrow AM. Medications appropriate for kidney function. Vancomycin has been discontinued. Lisinopril held since admission. 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 (2) Ascites: GI consultation reviewed. SAAG <1.1 concerning for possible underlying malignancy. However, clinical presentation suggestive of cirrhosis with portal hypertension. IV albumin to be provided with each large volume paracentesis (25 grams with first 3 L and additional 6-12.5 grams for each additional liter). (3) Cellulitis: Cultures negative. Treatment switched to PO Keflex. (4) Primary hypothyroidism: (5) Cirrhosis: Cardiac vs LUCAS? MELD ~15. (6) Ventricular dysrhythmia: Amiodarone stopped. (7) Renal cyst, right: Appears simple. No additional evaluation needed. (8) Abnormal ultrasound of bladder: Small nodule noted on US. Urine cytology negative. Patient denies smoking history. No abnormal urine findings. No additional evaluation at this time. Consider urology follow up or repeat imaging as outpatient. (9) Acute CHF: Clinically improving. Will monitor. History of Present Illness Reason for Consultation: EVETTE Requesting Physician: Thien Mccann DO Attending Physician: Thien Mccann DO History of Present Illness Mr. Amandeep Lugo is an 80-year-old male with coronary artery disease, history of CABG, history of ventricular arrhythmia s/p ICD placement, detention amiodarone use, HFpEF, cirrhosis (suspected cardiac vs. LUCAS), venous insufficiency, bioprosthetic AV, and chronic macrocytic anemia. He presented to [facility] on 01/20 with increasing shortness of breath and fatigue. Amandeep was experiencing significant progressive fluid retention notably involving his abdomen and lower extremities. He had experienced a 35 lbs weight gain over the past several months despite diminished appetite. The patient was referred to the hospital by his theater education teacher for inpatient evaluation and diuresis. He has responded well to IV furosemide. Weight is down from 117 kg on admission to 105.5 kg currently. Amandeep states that he feels significantly better. He expressed an overall decline in functional status over the past year. Several months ago, he stopped driving himself due to edema and weakness in his legs. As his abdominal ascites increased, he experienced increasing difficulty with transfers (specifically in and out of the care). He notes that his activity tolerance has increasingly limited due to dyspnea. He was unable to climb stairs to his bedroom and his son had moved the bed to the first floor. 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 He could climb a flight of stairs without difficulty. Amandeep more recently has not been able to walk across a room without needing to stop to rest. He states that he was also having difficulty laying down on his back due to breathing difficulties associated with abdominal distention. He denies any change in urine output. Medical history is also notable for a venous ulcer which developed on his left lower extremity. No fevers or chills. His had debrided the ulcer and Amandeep felt it was healing. He is being treated for cellulitis with cefazolin a nd vancomycin since admission. Hypothyroidism diagnosed on admission. Suspected that this may be related to chronic amiodarone use. Amiodarone has been discontinued. Exact history of arrhythmia unclear. ICD interrogated during this admission. No recent events noted. Baseline creatinine prior to admission 1.36 mg/dL. Creatinine was 2.43 mg/dL on admission and has remained stable. Creatinine 2.18 mg/dL now. Amandeep is non- oliguric. Furosemide 40 mg twice daily provided since admission. Large volume paracentesis with 5 L removed on 01/21. SAAG <1.1. Cytology negative. Renal US notable for a 4.5 cm cysts in the right kidney and a 19 mm lesion in the bladder. Urine cytology negative x 1. UA is bland and microscopy accellular. Allergies Allergy/AdvReac Type Severity Reaction Status Date / Time No Known Allergies Allergy Verified 01/20/21 10:16 Home Medications Medication Instructions Recorded Confirmed Type aspirin 81 mg tablet,delayed 81 mg PO DAILY tab 07/26/19 01/20/21 History release atorvastatin 10 mg tablet 10 mg PO DAILY #90 tab 07/26/19 01/20/21 History amiodarone 200 mg tablet 200 mg PO DAILY 06/05/20 01/20/21 History carvedilol 3.125 mg tablet 3.125 mg PO BID 06/05/20 01/20/21 History lisinopril 2.5 mg tablet 2.5 mg PO DAILY 06/05/20 01/20/21 History nitroglycerin 0.4 mg sublingual 0.4 mg SL Q5M PRN 06/05/20 01/20/21 History tablet cholecalciferol (vitamin D3) 25 1,000 unit PO DAILY cap 07/14/20 01/20/21 H istory mcg (1,000 unit) capsule furosemide 40 mg tablet 40 mg PO DAILY #90 tab 07/30/20 01/20/21 Rx cyanocobalamin (vitamin B-12) 500 mcg PO DAILY 01/20/21 01/20/21 History [Vitamin B-12] diphenhydramine-acetaminophen 1 tab PO HS PRN 01/20/21 01/20/21 History [Tylenol PM Extra Strength] jvambbrd-kkm-FA-lycopen-lutein 1 tab PO DAILY 01/20/21 01/20/21 History [Centrum Silver Men] omega-3 fatty acids [[place] 3] 1,000 mg PO DAILY 01/20/21 01/20/21 History vitamin B complex 1 tab PO DAILY 01/20/21 01/20/21 History Patient History Medical History Cardiac arrest 09/2020 Coronary artery disease Dyslipidemia ICD (implantable cardioverter-defibrillator) in place Surgical History History of arthroscopy of left knee History of inguinal hernia repair, bilateral History of umbilical hernia repair S/P aortic valve replacement with bioprosthetic valve Status post aorto-coronary artery bypass graft 1998 Social History Smoking Status: Never smoker Hx Alcohol Use: No Hx Substance Use: No Preferred Language: Irish Communication Ability: Effective Maturity Checker Required: No Beliefs That Will Affect Care: None Current Living Situation: Spouse Other Information That Helps Us Care for You: No Feels Safe at Home: Yes Safety Concerns: Feels Safe At This Time Assistive Devices: Walker Review of Systems Review of Systems: All systems reviewed & are unremarkable except as noted in HPI & below Physical Exam Constitutional: well developed and + frail appearing; no acute distress Eyes: + anicteric sclerae; no corneal abnormality ENMT: Mouth: no oral mucosal abnormality and oral mucous membranes not dry Neck: normal visual inspection and trachea midline Respiratory: normal respiratory effort Auscultation: lungs clear to auscultation bilaterally Cardiovascular: Rate/Rhythm: regular rate and regular rhythm Heart Sounds: normal S1 and normal S2; no gallop and no cardiac rub Palpation: S3 nonpalpable Vessels: no JVD Extremities: + edema Gastrointestinal (Abdomen): Inspection/Auscultation: + abdomen distended and + abdominal edema Percussion/Palpation: abdomen nontender and no guarding Musculoskeletal: Extremities: no cyanosis and no clubbing Skin: + turgor decreased and + ecchymosis Neurologic: Motor/Sensory: no tremor and no asterixis Psychiatric: Orientation: alert and oriented x 3 Results & Data ([facility]) Vital Signs (Past 12 Hours) Vital Signs Temp Pulse Pulse Resp BP BP Pulse Ox 01/23/21 11:21 60 18 105/56 L 97 01/23/21 07:49 60 01/23/21 07:27 36.4 C L 61 16 112/62 93 01/23/21 03:25 36.5 C 60 17 91/52 L 92 Laboratory Results Laboratory Results - last 24 hr 01/23/21 01/23/21 06:05 06:05 WBC 4.86 RBC 3.35 L Hgb 12.1 L Hct 35.2 L MCV 105.1 H MCH 36.1 H MCHC 34.4 RDW Std Deviation 56.9 H RDW Coeff of Patricia 14.5 Plt Count 131 MPV 11.1 H Sodium 142 Potassium 4.4 Chloride 109 H Carbon Dioxide 28 Anion Gap 5.0 BUN 50 H Creatinine 2.18 H Est Cr Clr Drug Dosing 32.3 Est GFR ( Amer) 31.5 Est GFR (Non-Af Amer) 27.2 BUN/Creatinine Ratio 23.1 H Glucose 79 Calcium 8.7 Phosphorus 3.0 Magnesium 2.5 H Diagnostic Findings Renal US personally reviewed. TTE demonstrated LVEF ~45%, mild to moderate MR and mild to moderate TR. PG Care Time/CCT Total # of Minutes Spent Total Time Spent with Patient: Total time spent is greater than 50% in coordination of care (as documented) at patient's floor/unit and/or counseling patient: Coding Level of Care Code 53880 Inpt Consult Level 5 Diagnoses Acute kidney injury superimposed on CKD N17.9; N18.9 Ascites R18.8 Ascites type: other type Cellulitis L03.116 Site of cellulitis: extremity Site of cellulitis of extremity: lower extremity Laterality: left Primary hypothyroidism E03.9 Cirrhosis K74.60; R18.8 Hepatic cirrhosis type: unspecified hepatic cirrhosis Ascites presence: with ascites Ventricular dysrhythmia I49.9 Renal cyst, right N28.1 Abnormal ultrasound of bladder R93.41 Acute CHF I50.9 (1) Ascites Ascites type: other type Qualified Code(s): R18.8 - Other ascites (2) Cellulitis Site of cellulitis: extremity Site of cellulitis of extremity: lower extr emity Laterality: left Qualified Code(s): L03.116 - Cellulitis of left lower limb (3) Cirrhosis Hepatic cirrhosis type: unspecified hepatic cirrhosis Ascites presence: with ascites Qualified Code(s): K74.60 - Unspecified cirrhosis of liver; R18.8 - Other ascites
--- NOTE | 2021-01-23 18:24 | Hospitalist Progress Note ---
Date of Service January 23, 2021 Assessment & Plan (1) Cellulitis: Left lower extremity Blood cultures x2 with no growth to date. (Blood cultures drawn 01/20/2021) Afebrile Started antibiotic treatment 01/21/2021 with cefazolin and vancomycin for 7-day course No growth on blood cultures so vancomycin discontinued Cefazolin discontinued and patient started on Keflex 500 mg p.o. 4 times daily on 01/22/2021 Today is day #3 of antibiotic treatment (2) Acute systolic CHF (congestive heart failure): Currently being diuresed with furosemide twice daily Patient does have slight elevation in creatinine -continue to monitor serial labs Continue with daily weights (Note-patient is status post paracentesis with 5 L removed) Preserved left ventricular ejection fraction of 45% Continue Coreg (3) Acute kidney injury superimposed on CKD: Creatinine today is 2.18 * Baseline appears to be 1.36 Nephrology has been consulted. Appreciate Dr. Joseph's input Continue with diuresis and encourage negative fluid balance Continue daily weights follow serial labs (4) Ascites: Status post paracentesis with administration of 40 g of albumin Anticipate repeat paracentesis tomorrow. Patient reports significant increase in comfort since paracentesis (5) Primary hypothyroidism: Suspect etiology to be amiodarone use Discussion with Dr. Souza per Dr. Daniels's note IV levothyroxine 12.5 mcg IV daily Plan was to change to 25 mcg p.o. daily once more euvolemic and then discharge on 50 mcg p.o. daily Patient changed to levothyroxine 50 mcg p.o. daily on 01/22/2021 Further outpatient management (6) Cirrhosis: GI consulted Meld score 15 SAAG less than 1.1 so concern for nephrotic syndrome/cancer Outpatient EGD for varices (7) Ventricular dysrhythmia: Patient with implantable ICD Amiodarone has been discontinued and will remain in system for months No need for further dysrhythmic medication at this time Outpatient follow-up with cardiology (8) Coronary artery disease: CABG in 1998 Vein harvesting from left lower extremity at that time Continue aspirin, carvedilol, and atorvastatin Home lisinopril is held secondary to acute renal failure Continue to follow on medical telemetry (9) Abnormal ultrasound of bladder: No hematuria at this time Outpatient follow-up with urology Urine cytology is pending (10) S/P aortic valve replacement with bioprosthetic valve: Not anticoagulated Patient reports no history of any issues with valve since replacement Echo audiogram with well-seated prosthetic aortic valve with normal gradient Further outpatient management (11) DVT prophylaxis: Heparin subcutaneously Ambulate as tolerated by patient Venous Doppler on 01/20/2021 - for DVT of left lower extremity Admission and Anticipated Discharge Date Admission Date: January 20, 2021 Subjective Attending: Dr. Mccann Patient seen and examined at bedside. He states that his mobility with his lower extremities are much better. Continues to have significant left lower extremity edema. Pain is well controlled. Tolerating antibiotics. He denies any fever. Drainage from left lower extremity seems to be improved. No other acute complaints. Review of Systems Review of Systems: All systems reviewed & are unremarkable except as noted in Subjective Physical Exam Physical Exam: GENERAL : No acute distress EYES: No icterus, gaze conjugate NOSE: No evidence of epistaxis MOUTH: No lesions or candidiasis. Mucosa moist NECK: Supple LUNGS: Fine bibasilar crackles HEART: Regular, rate controlled ABDOMEN: Soft, NT, ND, BS Present EXTREMITIES: +4 edema of the left lower extremity. There is some drainage. Dressing is in place. No pain to palpation. Right lower extremity also has some edema but is only a +2. Patient does state that he has sore heels bilaterally. He states that this is a chronic problem. NEURO: A&OX3 Results & Data Results & Data ([facility]) Vital Signs (Past 12 Hours) Vital Signs Temp Pulse Pulse Resp BP BP Pulse Ox 01/23/21 15:56 35.7 C L 66 18 102/63 97 01/23/21 11:21 60 18 105/56 L 97 01/23/21 07:49 60 01/23/21 07:27 36.4 C L 61 16 112/62 93 Laboratory Results 01/23/21 06:05 01/23/21 06:05 Diagnostic Findings No new diagnostic findings PG Care Time/CCT Total # of Minutes Spent Total Time Spent with Patient: Total time spent is greater than 50% in coordination of care (as documented) at patient's floor/unit and/or counseling patient: Coding Level of Care Code 86659 Subseq Hosp Care Lvl 2 Diagnoses Cellulitis L03.116 Site of cellulitis: extremity Site of cellulitis of extremity: lower extremity Laterality: left Acute systolic CHF (congestive heart failure) I50.21 Acute kidney injury superimposed on CKD N17.9; N18.9 Ascites R18.8 Primary hypothyroidism E03.9 Cirrhosis K74.60; R18.8 Hepatic cirrhosis type: unspecified hepatic cirrhosis Ascites presence: with ascites Ventricular dysrhythmia I49.9 Coronary artery disease I25.10 Coronary Disease-Associated Artery/Lesion type: [place] artery [place] vs. transplanted heart: [place] heart Associated angina: without angina Abnormal ultrasound of bladder R93.41 S/P aortic valve replacement with bioprosthetic valve Z95.3 DVT prophylaxis Z29.9 (1) Cellulitis Site of cellulitis: extremity Site of cellulitis of extremity: lower extremity Laterality: left Qualified Code(s): L03.116 - Cellulitis of left low er limb (2) Cirrhosis Hepatic cirrhosis type: unspecified hepatic cirrhosis Ascites presence: with ascites Qualified Code(s): K74.60 - Unspecified cirrhosis of liver; R18.8 - Other ascites (3) Coronary artery disease Coronary Disease-Associated Artery/Lesion type: [place] artery [place] vs. transplanted heart: [place] heart Associated angina: without angina Qualified Code(s): I25.10 - Atherosclerotic heart disease of [place] coronary artery without angina pectoris
[2021-01-24] MEDS: LEVOTHYROXINE SODIUM 50 MCG TABLET PO SCH (05:28)
[2021-01-24 06:39] LABS: Est GFR (African American) 36.1; Est GFR (Non-African American) 31.1
[2021-01-24] MEDS: ASPIRIN 81 MG ECTAB PO SCH (08:10)
[2021-01-24] MEDS: FUROSEMIDE 40 MG in SYRINGE 0 ML IV SCH ×2 (08:10→16:49)
[2021-01-24] MEDS: cephALEXin 500 MG CAP PO SCH ×2 (08:10→20:21)
[2021-01-24] MEDS: ATORVASTATIN 10 MG TAB PO SCH (08:11)
[2021-01-24] MEDS: CEROVITE ADV FORMULA TAB PO SCH (08:11)
[2021-01-24] MEDS: CHOLECALCIFEROL 1,000 UNITS 25 MCG TAB PO SCH (08:11)
[2021-01-24] MEDS: VITAMIN B COMPLEX TAB PO SCH (08:11)
[2021-01-24] MEDS: CYANOCOBALAMIN 500 MCG TABLET (VITAMIN B-12) PO SCH (08:11)
[2021-01-24] MEDS: OMEGA-3 (PURIFIED FISH OIL) 1 GM CAP PO SCH (08:11)
[2021-01-24] MEDS: carvediloL 3.125 MG TAB PO SCH ×2 (08:12→20:20)
--- NOTE | 2021-01-24 11:16 | Nephrology Progress Note ---
Date of Service January 24, 2021 Assessment & Plan (1) Acute kidney injury superimposed on CKD: Baseline creatinine 1.36 mg/dL. Non-oliguric. US did not demonstrate obstruction. UA bland and microscopy acellular. Clinically presentation consistent with CRS (predominately R heart/venous congestion) improving with diuresis. Document I/O's. Diuretics to encourage negative fluid balance. Daily weights. Repeat metabolic profile tomorrow AM. Medications appropriate for kidney function. Vancomycin has been discontinued. Lisinopril held since admission. I discussed the plan of care with Beto Martin PA-C this AM. Diuretics may be transitioned to PO in anticipation of discharge in the next 1-2 days. (2) Ascites: GI consultation reviewed. SAAG <1.1 concerning for possible underlying malignancy. Cytology negative. Clinical presentation suggestive of cirrhosis with portal hypertension. IV SPA albumin to be provided with each large volume paracentesis (I would suggest 25 grams with first 3 L and additional 6-12.5 grams for each additional liter). (3) Cellulitis: Cultures negative. Treatment switched to PO Keflex. (4) Renal cyst, right: Appears simple. No additional evaluation needed. (5) Abnormal ultrasound of bladder: Small nodule noted on US. Urine cytology negative. Patient denies smoking history. No abnormal urine findings. No additional evaluation at this time. Consider urology follow up or repeat imaging as outpatient. Admission and Anticipated Discharge Date Admission Date: January 20, 2021 Subjective Amandeep reports continued improvement. Out of bed to chair this morning. Significant improvement in mobility. Edema continues to improve. Appetite is good. No lightheadedness or dizziness. Breathing comfortably. I/O's not complete. Weight down ~0.5 kg. Review of Systems Review of Systems: All systems reviewed & are unremarkable except as noted in HPI & below Physical Exam Constitutional: well developed and + frail appearing; no acute distress Eyes: + anicteric sclerae; no corneal abnormality ENMT: Mouth: no oral mucosal abnormality and oral mucous membranes not dry Neck: normal visual inspection and trachea midline Respiratory: normal respiratory effort Auscultation: lungs clear to auscultation bilaterally Cardiovascular: Rate/Rhythm: regular rate and regular rhythm Heart Sounds: normal S1 and normal S2; no gallop and no cardiac rub Palpation: S3 nonpalpable Vessels: no JVD Extremities: + edema Gastrointestinal (Abdomen): Inspection/Auscultation: + abdomen distended and + abdominal edema Percussion/Palpation: abdomen nontender and no guarding Musculoskeletal: Extremities: no cyanosis and no clubbing Skin: + turgor decreased and + ecchymosis Neurologic: Motor/Sensory: no tremor and no asterixis Psychiatric: Orientation: alert and oriented x 3 Results & Data ([facility]) Vital Signs (Past 12 Hours) Vital Signs Temp Pulse Pulse Resp BP BP Pulse Ox 01/24/21 07:25 36.4 C L 60 18 94/54 L 97 01/24/21 03:34 36.4 C L 78 16 107/64 98 01/24/21 03:09 60 01/23/21 23:16 36.7 C 59 L 16 96/58 L 98 Laboratory Results Laboratory Results - last 24 hr 01/24/21 05:39 Creatinine 1.95 H Est Cr Clr Drug Dosing 36.0 Est GFR ( Amer) 36.1 Est GFR (Non-Af Amer) 31.1 PG Care Time/CCT Total # of Minutes Spent Total Time Spent with Patient: Total time spent is greater than 50% in coordination of care (as documented) at patient's floor/unit and/or counseling patient: Coding Level of Care Code 49286 Subseq Hosp Care Lvl 3 Diagnoses Acute kidney injury superimposed on CKD N17.9; N18.9 Ascites R18.8 Ascites type: other type Cellulitis L03.116 Site of cellulitis: extremity Site of cellulitis of extremity: lower extremity Laterality: left Renal cyst, right N28.1 Abnormal ultrasound of bladder R93.41 (1) Ascites Ascites type: other type Qualified Code(s): R18.8 - Other ascites (2) Cellulitis Site of cellulitis: extremity Site of cellulitis of extremity: lower extremity Laterality: left Qualified Code(s): L03.116 - Cellulitis of left lower limb
--- NOTE | 2021-01-24 16:26 | Hospitalist Progress Note ---
Date of Service January 24, 2021 Assessment & Plan (1) Cellulitis: Left lower extremity continues with some drainage but significantly improved Blood cultures x2 with no growth to date. (Blood cultures drawn 01/20/2021) Afebrile Started antibiotic treatment 01/21/2021 with cefazolin and vancomycin for 7-day course No growth on blood cultures so vancomycin discontinued Cefazolin discontinued and patient started on Keflex 500 mg p.o. 4 times daily on 01/22/2021 Today is day #4 of antibiotic treatment (2) Acute systolic CHF (congestive heart failure): Currently being diuresed with furosemide twice daily Creatinine is decreased to 1.95 today from 2.18 yesterday Continue with daily weights (Note-patient is status post paracentesis with 5 L removed) Anticipate repeat paracentesis tomorrow Preserved left ventricular ejection fraction of 45% Continue Coreg (3) Acute kidney injury superimposed on CKD: Creatinine today is 1.95 * Baseline appears to be 1.36 Nephrology has been consulted. Appreciate Dr. Joseph's input Follow-up with Dr. Hunt on discharge Continue with diuresis and encourage negative fluid balance Continue daily weights follow serial labs (4) Ascites: Status post paracentesis with administration of 40 g of albumin Anticipate repeat paracentesis tomorrow. Patient reports significant increase in comfort since paracentesis but states that abdomen is now beginning to get tense again (5) Primary hypothyroidism: Suspect etiology to be amiodarone use Discussion with Dr. Souza per Dr. Daniels's note IV levothyroxine 12.5 mcg IV daily Plan was to change to 25 mcg p.o. daily once more euvolemic and then discharge on levothyroxine 50 mcg p.o. daily Patient changed to levothyroxine 50 mcg p.o. daily on 01/22/2021 Further outpatient management (6) Cirrhosis: GI consulted Meld score 15 SAAG less than 1.1 so concern for nephrotic syndrome/cancer We will need outpatient EGD for varices (7) Ventricular dysrhythmia: Patient with implantable ICD Amiodarone has been discontinued and will remain in system for months No need for further dysrhythmic medication at this time Outpatient follow-up with cardiology (8) Coronary artery disease: CABG in 1998 Vein harvesting from left lower extremity at that time Continue aspirin, carvedilol, and atorvastatin Home lisinopril is held secondary to acute renal failure * Continue lisinopril on discharge if creatinine is improved Continue to follow on medical telemetry (9) Abnormal ultrasound of bladder: No hematuria at this time There is a 19 mm nonspecific posterior bladder nodule. Outpatient follow-up with urology Urine cytology negative for high grade urothelial carcinoma (10) S/P aortic valve replacement with bioprosthetic valve: Not anticoagulated Patient reports no history of any issues with valve since replacement Echo audiogram with well-seated prosthetic aortic valve with normal gradient Further outpatient management (11) DVT prophylaxis: Heparin subcutaneously Ambulate as tolerated by patient Venous Doppler on 01/20/2021 - for DVT of left lower extremity Admission and Anticipated Discharge Date Admission Date: January 20, 2021 Subjective Attending: Dr. Mccann Patient seen and examined at bedside. He is in bedside chair. Edema of the lower extremity seems to be slowly improving. Still with some drainage from the left lower extremity. Patient feels as though his abdomen is more tense today and feels as though he would benefit from repeat paracentesis. He denies any fever chills. He has no nausea or vomiting. He has no other acute complaints. Review of Systems Review of Systems: All systems reviewed & are unremarkable except as noted in Subjective Physical Exam Physical Exam: GENERAL : No acute distress EYES: No icterus, gaze conjugate NOSE: No evidence of epistaxis MOUTH: No lesions or candidiasis NECK: Supple LUNGS: Crackles at the bilateral bases. No bronchospasm HEART: Regular, rate controlled ABDOMEN: Soft, NT, ND, BS Present. Patient does have positive fluid wave with palpation of abdomen today EXTREMITIES: +4 left lower extremity and +2 right lower extremity edema, pedal pulses intact and equal bilaterally NEURO: A&OX3 Results & Data Results & Data ([facility]) Vital Signs (Past 12 Hours) Vital Signs Temp Pulse Resp BP BP Pulse Ox 01/24/21 15:29 60 18 112/65 97 01/24/21 11:13 78 18 105/47 L 96 01/24/21 07:25 36.4 C L 60 18 94/54 L 97 Laboratory Results 01/23/21 06:05 01/24/21 05:39 Diagnostic Findings No further diagnostic imaging today PG Care Time/CCT Total # of Minutes Spent Total Time Spent with Patient: Total time spent is greater than 50% in co ordination of care (as documented) at patient's floor/unit and/or counseling patient: Coding Level of Care Code 45756 Subseq Hosp Care Lvl 2 Diagnoses Cellulitis L03.116 Site of cellulitis: extremity Site of cellulitis of extremity: lower extremity Laterality: left Acute systolic CHF (congestive heart failure) I50.21 Acute kidney injury superimposed on CKD N17.9; N18.9 Ascites R18.8 Primary hypothyroidism E03.9 Cirrhosis K74.60; R18.8 Hepatic cirrhosis type: unspecified hepatic cirrhosis Ascites presence: with ascites Ventricular dysrhythmia I49.9 Coronary artery disease I25.10 Coronary Disease-Associated Artery/Lesion type: [place] artery [place] vs. transplanted heart: [place] heart Associated angina: without angina Abnormal ultrasound of bladder R93.41 S/P aortic valve replacement with bioprosthetic valve Z95.3 DVT prophylaxis Z29.9 (1) Cellulitis Site of cellulitis: extremity Site of cellulitis of extremity: lower extremity Laterality: left Qualified Code(s): L03.116 - Cellulitis of left lower limb (2) Cirrhosis Hepatic cirrhosis type: unspecified hepatic cirrhosis Ascites presence: with ascites Qualified Code(s): K74.60 - Unspecified cirrhosis of liver; R18.8 - Other ascites (3) Coronary artery disease Coronary Disease-Associated Artery/Lesion type: [place] artery [place] vs. transplanted heart: [place] heart Associated angina: without angina Qualified Code(s): I25.10 - Atherosclerotic heart disease of [place] coronary artery without angina pectoris
[2021-01-25] MEDS: LEVOTHYROXINE SODIUM 50 MCG TABLET PO SCH (05:54)
[2021-01-25 07:24] LABS: Albumin Level 2.7 gm/dl (3.4-5.0); BUN Creatinine Ratio 21.7 (10-20); Calcium 8.2 mg/dl (8.5-10.1); Est GFR (African American) 36.1; Est GFR (Non-African American) 31.1; Potassium 4.4 mmol/L (3.5-5.1)
[2021-01-25 07:25] LABS: Phosphorus 2.8 mg/dl (2.5-4.9)
[2021-01-25] MEDS: ATORVASTATIN 10 MG TAB PO SCH (08:24)
[2021-01-25] MEDS: CHOLECALCIFEROL 1,000 UNITS 25 MCG TAB PO SCH (08:24)
[2021-01-25] MEDS: CEROVITE ADV FORMULA TAB PO SCH (08:24)
[2021-01-25] MEDS: cephALEXin 500 MG CAP PO SCH ×2 (08:25→20:00)
[2021-01-25] MEDS: ASPIRIN 81 MG ECTAB PO SCH (08:25)
[2021-01-25] MEDS: VITAMIN B COMPLEX TAB PO SCH (08:25)
[2021-01-25] MEDS: CYANOCOBALAMIN 500 MCG TABLET (VITAMIN B-12) PO SCH (08:25)
[2021-01-25] MEDS: FUROSEMIDE 40 MG in SYRINGE 0 ML IV SCH ×2 (08:26→16:40)
[2021-01-25] MEDS: carvediloL 3.125 MG TAB PO SCH ×2 (08:26→20:00)
[2021-01-25] MEDS: OMEGA-3 (PURIFIED FISH OIL) 1 GM CAP PO SCH (08:26)
--- NOTE | 2021-01-25 09:07 | Nephrology Progress Note ---
Date of Service January 25, 2021 Assessment & Plan (1) Acute kidney injury superimposed on CKD: Baseline creatinine 1.36 mg/dL. Non-oliguric. US did not demonstrate obstruction. UA bland and microscopy acellular. Clinically presentation consistent with CRS (predominately R heart/venous congestion). Improving with treatment. Medications appropriate for kidney function. Repeat metabolic profile within the week as an outpatient (results can be faxed to my office @ [phone]). Follow up in the nephrology clinic within 2 weeks. (2) Ascites: SPA albumin to be provided s/p paracentesis - reviewed with primary team this AM (3) Renal cyst, right: Appears simple. No additional evaluation needed. (4) Abnormal ultrasound of bladder: Small nodule noted on US. Urine cytology negative. No smoking history. No abnormal urine findings. Consider urology follow up as outpatient. Admission and Anticipated Discharge Date Admission Date: January 20, 2021 Subjective No acute events. No complaints this AM. Anticipating paracentesis. Hopeful to be discharged home s/p procedure. I discussed the plan of care with Beto Martin PA-C this AM. Review of Systems Review of Systems: All systems reviewed & are unremarkable except as noted in HPI & below Physical Exam Constitutional: well developed and + frail appearing; no acute distress Eyes: + anicteric sclerae; no corneal abnormality ENMT: Mouth: no oral mucosal abnormality and oral mucous membranes not dry Neck: normal visual inspection and trachea midline Respiratory: normal respiratory effort Auscultation: lungs clear to auscultation bilaterally Cardiovascular: Rate/Rhythm: regular rate and regular rhythm Heart Sounds: normal S1 and normal S2; no gallop and no cardiac rub Palpation: S3 nonpalpable Vessels: no JVD Extremities: + edema Gastrointestinal (Abdomen): Inspection/Auscultation: + abdomen distended and + abdominal edema Percussion/Palpation: abdomen nontender and no guarding Musculoskeletal: Extremities: no cyanosis and no clubbing Skin: + turgor decreased and + ecchymosis Neurologic: Motor/Sensory: no tremor and no asterixis Psychiatric: Orientation: alert and oriented x 3 Results & Data ([facility]) Vital Signs (Past 12 Hours) Vital Signs Temp Pulse Resp BP BP Pulse Ox 01/25/21 07:00 36.2 C L 60 20 108/54 L 96 01/25/21 05:27 103/60 95/53 L 01/25/21 03:00 36.3 C L 60 15 83/51 L 95 01/24/21 23:00 36.6 C 59 L 18 99/52 L 92 Laboratory Results Laboratory Results - last 24 hr 01/25/21 05:57 Sodium 143 Potassium 4.4 Chloride 108 H Carbon Dioxide 28 Anion Gap 7.0 BUN 42 H Creatinine 1.95 H Est Cr Clr Drug Dosing 36.0 Est GFR ( Amer) 36.1 Est GFR (Non-Af Amer) 31.1 BUN/Creatinine Ratio 21.7 H Glucose 76 Calcium 8.2 L Phosphorus 2.8 Albumin 2.7 L PG Care Time/CCT Total # of Minutes Spent Total Time Spent with Patient: Total time spent is greater than 50% in coordination of care (as documented) at patient's floor/unit and/or counseling patient: Coding Level of Care Code 37819 Subseq Hosp Care Lvl 3 Diagnoses Acute kidney injury superimposed on CKD N17.9; N18.9 Ascites R18.8 Ascites type: other type Renal cyst, right N28.1 Abnormal ultrasound of bladder R93.41 (1) Ascites Ascites type: other type Qualified Code(s): R18.8 - Other ascites
--- NOTE | 2021-01-25 09:39 | Cardiology Progress Note ---
Date of Service January 25, 2021 Assessment & Plan (1) Acute on chronic systolic (congestive) heart failure: -continues to diurese on Lasix 40 mg IV b.i.d.. -has lost 29 lb since admission. -consider up titration of carvedilol. (2) Coronary artery disease: -s/p CABG x1 in February 1999. -basal inferior wall motion abnormality. -continue aspirin and atorvastatin. (3) Ischemic cardiomyopathy: -mild left ventricular dysfunction with ejection fraction of 45-50%. -lisinopril on hold due to renal insufficiency. (4) S/P aortic valve replacement with bioprosthetic valve: -bioprosthetic aortic valve and ascending thoracic aortic repair in February 1999. -properly functioning prosthesis on echo. (5) ICD (implantable cardioverter-defibrillator) in place: -September 2019. -proper function in device clinic, August 2020. -placed for presumed ventricular dysrhythmia, details unknown. Admission and Anticipated Discharge Date Admission Date: January 20, 2021 Subjective The patient is resting comfortably in the bedside chair without complaints of chest pain or dyspnea. He is anxious for hospital discharge. Physical Exam Physical Exam: In general this is a well-developed well-nourished white male in no acute distress. HEENT exam is negative. Neck reveals normal carotid upstrokes and transmitted murmur to the right carotid. No JVD. There is no thyromegaly. Cardiovascular exam reveals a regular rhythm with a 1/6 basal systolic ejection murmur. Valve sounds are crisp. No diastolic murmurs. Chest reveals a well-healed midline scar. Lungs are clear without rales, rhonchi, or wheezes. Abdomen is soft without bruits. Extremities reveal significant pitting and nonpitting edema of the left lower extremity. Several dressings noted on the left lower extremity. There is 1+ thigh edema bilaterally. Results & Data ([facility]) Vital Signs (Past 12 Hours) Vital Signs Temp Pulse Resp BP BP Pulse Ox 01/25/21 07:00 36.2 C L 60 20 108/54 L 96 01/25/21 05:27 103/60 95/53 L 01/25/21 03:00 36.3 C L 60 15 83/51 L 95 01/24/21 23:00 36.6 C 59 L 18 99/52 L 92 Diagnostic Findings Telemetry notes appropriate ventricular pacing. PG Care Time/CCT Total # of Minutes Spent Total Time Spent with Patient: Total time spent is greater than 50% in coordination of care (as documented) at patient's floor/unit and/or counseling patient: Coding Level of Care Code 02033 Subseq Hosp Care Lvl 3 Diagnoses Acute on chronic systolic (congestive) heart failure I50.23 Coronary artery disease I25.10 Coronary Disease-Associated Artery/Lesion type: [place] artery [place] vs. transplanted heart: [place] heart Associated angina: without angina Ischemic cardiomyopathy I25.5 S/P aortic valve replacement with bioprosthetic valve Z95.3 ICD (implantable cardioverter-defibrillator) in place Z95.810 (1) Coronary artery disease Coronary Disease-Associated Artery/Lesion type: [place] artery [place] vs. transplanted heart: [place] heart Associated angina: without angina Qualified Code(s): I25.10 - Atherosclerotic heart disease of [place] coronary artery without angina pectoris
[2021-01-25] MEDS: ALBUMIN 25% 12.5 GM/50 ML VIAL IV SCH ×4 (14:16→16:35)
--- NOTE | 2021-01-25 14:29 | Ultrasound Report ---
US paracentesis abd w/image CLINICAL HISTORY: 80 years-old Male with ascites. Recurrent ascites COMPARISON: Ultrasound-guided paracentesis 01/21/2021 PROCEDURE: The procedure was explained to the patient in the care including the benefits and possible risks/complications. The patient gave verbal understanding and written consent was obtained. A time -out was performed prior to the start of the procedure. The patient was placed on the ultrasound table in the supine position. Using ultrasound guidance, an appropriate procedure site in the right lower abdomen was marked. This area was then prepped and drap ed in the usual sterile fashion. Local anesthesia was achieved within 1% lidocaine. An 8-[place] cente sis catheter was then inserted. Approximately 4.7 liters of clear, yellowish fluid was removed for th erapeutic purposes only. The catheter was removed and external pressure was held to achieve hemostasis. A sterile dressing was applied to the procedure site. The patient tolerated the procedure well without immediate complicati ons. IMPRESSION: Successful ultrasound-guided paracentesis with removal of 4.7 L ascitic fluid ACT 112: Negative or not required by law. The above report was generated using voice recognition software. It may contain grammatical, syntax o r spelling errors. Electronically signed by: Chris Degroot M.D. 01/25/2021 2:27 PM
--- NOTE | 2021-01-25 15:06 | Hospitalist Progress Note ---
Date of Service January 25, 2021 Assessment & Plan (1) Cellulitis: Left lower extremity with scant drainage Blood cultures x2 with no growth to date. (Blood cultures drawn 01/20/2021) Afebrile Started antibiotic treatment 01/21/2021 with cefazolin and vancomycin for 7-day course No growth on blood cultures so vancomycin discontinued Cefazolin discontinued and patient started on Keflex 500 mg p.o. 4 times daily on 01/22/2021 Today is day #5 of antibiotic treatment (2) Acute systolic CHF (congestive heart failure): Currently being diuresed with furosemide twice daily Creatinine is stable Continue with daily weights (Note-patient is status post paracentesis with 5 L removed last Monday and an additional 4.5 L removed today) Preserved left ventricular ejection fraction of 45% Continue Coreg Discussed patient with the heart failure vp clinical. He will be followed in the office on discharge. (3) Acute kidney injury superimposed on CKD: Creatinine today is stable * Baseline appears to be 1.36 Nephrology has been consulted. Appreciate Dr. Joseph's input Follow-up with Dr. Hunt on discharge Continue with diuresis and encourage negative fluid balance Continue daily weights follow serial labs (4) Ascites: Status post paracentesis with administration of 40 g of albumin on 01/22/2021 Repeat paracentesis with additional 4.5 L evacuated. Will administer an additional 40 g of albumin prior to discharge Peritoneal fluid negative for malignancy Repeat labs are of been requested with today's peritoneal sample (5) Primary hypothyroidism: Suspect etiology to be amiodarone use Discussion with Dr. Souza per Dr. Daniels's note IV levothyroxine 12.5 mcg IV daily Plan was to change to 25 mcg p.o. daily once more euvolemic and then discharge on levothyroxine 50 mcg p.o. daily Patient changed to levothyroxine 50 mcg p.o. daily on 01/22/2021 Further outpatient management (6) Cirrhosis: GI consulted Meld score 15 SAAG less than 1.1 so concern for nephrotic syndrome/cancer We will need outpatient EGD for varices (7) Ventricular dysrhythmia: Patient with implantable ICD Amiodarone has been discontinued and will remain in system for months No need for further dysrhythmic medication at this time Outpatient follow-up with cardiology (8) Coronary artery disease: CABG in 1998 Vein harvesting from left lower extremity at that time Continue aspirin, carvedilol, and atorvastatin Home lisinopril is held secondary to acute renal failure * Continue lisinopril on discharge if creatinine is improved Continue to follow on medical telemetry (9) Abnormal ultrasound of bladder: No hematuria at this time There is a 19 mm nonspecific posterior bladder nodule. Outpatient follow-up with urology Urine cytology negative for high grade urothelial carcinoma (10) S/P aortic valve replacement with bioprosthetic valve: Not anticoagulated Patient reports no history of any issues with valve since replacement Echocardiogram with well-seated prosthetic aortic valve with normal gradient Further outpatient management (11) DVT prophylaxis: Heparin subcutaneously Ambulate as tolerated by patient Venous Doppler on 01/20/2021 - for DVT of left lower extremity Disposition: Patient should be ready for discharge later this evening after infusion of albumin. Care coordinated with family. He will be discharged tomorrow morning home. Admission and Anticipated Discharge Date Admission Date: January 20, 2021 Subjective Attending: Dr. Bliss Patient seen and examined at bedside. He is in bedside chair. He states that his abdomen feels much [place] again today. He is having trouble bending over at the waist. He denies any fever or chills. He has no nausea or vomiting. He has no abdominal pain. His left lower extremity continues to be a 4+ edema but is stable. He denies any pain in either leg. He has no numbness. He states that both feet are equally warm. He has no acute complaints. Review of Systems Review of Systems: All systems reviewed & are unremarkable except as noted in Subjective Physical Exam Physical Exam: GENERAL : No acute distress. In bedside chair EYES: No icterus, gaze conjugate NOSE: No evidence of epistaxis MOUTH: No lesions or candidiasis. Mucosa moist NECK: Supple LUNGS: Fine crackles in the bilateral bases. No bronchospasm or rhonchi appreciated HEART: Regular, rate controlled ABDOMEN: Soft, NT, ND, BS Present EXTREMITIES: +4 left LE edema, +2 right LE edema, pedal pulses intact and equal bilaterally. No appreciation of drainage or oozing from left lower extremity NEURO: A&OX3 Results & Data Results & Data ([facility]) Vital Signs (Past 12 Hours) Vital Signs Temp Pulse Pulse Resp BP BP Pulse Ox 01/25/21 14:00 60 18 117/64 96 01/25/21 11:00 36.1 C L 60 18 92/57 L 96 01/25/21 07:30 60 01/25/21 07:00 36.2 C L 60 20 108/54 L 96 01/25/21 05:27 103/60 95/53 L Laboratory Results 01/23/21 06:05 01/25/21 05:57 Diagnostic Findings No further diagnostic imaging required PG Care Time/CCT Total # of Minutes Spent Total Time Spent with Patient: Total time spent is greater than 50% in coordination of care (as documented) at patient's floor/unit and/or counseling patient: 40 minutes including discussion with patient's daughter in patient's room Coding Level of Care Code 61424 Subseq Hosp Care Lvl 2 Diagnoses Cellulitis L03.116 Laterality: left Site of cellulitis: extremity Site of cellulitis of extremity: lower extremity Acute systolic CHF (congestive heart failure) I50.21 Acute kidney injury superimposed on CKD N17.9; N18.9 Ascites R18.8 Primary hypothyroidism E03.9 Cirrhosis K74.60; R18.8 Ascites presence: with ascites Hepatic cirrhosis type: unspecified hepatic cirrhosis Ventricular dysrhythmia I49.9 Coronary artery disease I25.10 Associated angina: without angina Coronary Disease-Associated Artery/Lesion type: [place] artery [place] vs. transplanted heart: [place] heart Abnormal ultrasound of bladder R93.41 S/P aortic valve replacement with bioprosthetic valve Z95.3 DVT prophylaxis Z29.9 (1) Coronary artery disease Associated angina: without angina Coronary Disease-Associated Artery/Lesion type: [place] artery [place] vs. transplanted heart: [place] heart Qualified Code(s): I25.10 - Atherosclerotic heart disease of [place] coronary artery without angina pectoris (2) Cellulitis Laterality: left Site of cellulitis: extremity Site of cellulitis of extremity: lower extremity Qualified Code(s): L03.116 - Cellulitis of left lower limb (3) Cirrhosis Ascites presence: with ascites Hepatic cirrhosis type: unspecified hepatic cirrhosis Qualified Code(s): K74.60 - Unspecified cirrhosis of liver; R18.8 - Other ascites
[2021-01-26] MEDS: LEVOTHYROXINE SODIUM 50 MCG TABLET PO SCH (05:42)
[2021-01-26] MEDS: VITAMIN B COMPLEX TAB PO SCH (08:22)
[2021-01-26] MEDS: CYANOCOBALAMIN 500 MCG TABLET (VITAMIN B-12) PO SCH (08:22)
[2021-01-26] MEDS: cephALEXin 500 MG CAP PO SCH (08:22)
[2021-01-26] MEDS: ATORVASTATIN 10 MG TAB PO SCH (08:23)
[2021-01-26] MEDS: CEROVITE ADV FORMULA TAB PO SCH (08:23)
[2021-01-26] MEDS: OMEGA-3 (PURIFIED FISH OIL) 1 GM CAP PO SCH (08:23)
[2021-01-26] MEDS: ASPIRIN 81 MG ECTAB PO SCH (08:23)
[2021-01-26] MEDS: CHOLECALCIFEROL 1,000 UNITS 25 MCG TAB PO SCH (08:23)
[2021-01-26] MEDS: carvediloL 3.125 MG TAB PO SCH (08:23)
[2021-01-26] MEDS: FUROSEMIDE 40 MG in SYRINGE 0 ML IV SCH (08:57)
--- NOTE | 2021-01-26 09:32 | Cardiology Progress Note ---
Date of Service January 26, 2021 Assessment & Plan (1) Acute on chronic systolic (congestive) heart failure: -continues to diurese on Lasix 40 mg IV b.i.d.. -would discharged on Lasix 40 mg p.o. daily with an additional dose when necessary for weight gain. -tomorrow morning's weight at home will represent his dry weight. -will up titrate carvedilol as an outpatient. -had 2nd therapeutic paracentesis yesterday removing 4.5 L of ascites. (2) Coronary artery disease: -s/p CABG x1 in February 1999. -basal inferior wall motion abnormality on echocardiogram. -continue aspirin and atorvastatin. (3) Ischemic cardiomyopathy: -mild left ventricular dysfunction with ejection fraction of 45-50% on current echocardiogram. -lisinopril on hold due to renal insufficiency. (4) S/P aortic valve replacement with bioprosthetic valve: -bioprosthetic aortic valve and ascending thoracic aortic repair, February 1999. -properly functioning prosthesis on echocardiogram. (5) ICD (implantable cardioverter-defibrillator) in place: -September 2019. -proper function in device clinic, August 2020. -placed for presumed ventricular dysrhythmia, details unknown. (6) Cirrhosis: -management per GI. Admission and Anticipated Discharge Date Admission Date: January 20, 2021 Subjective The patient is resting comfortably at the bedside and denies chest pain and dyspnea. He is anxious for hospital discharge. We have reviewed the use of daily weights and sliding-scale diuretics. Physical Exam Physical Exam: In general this is a well-developed well-nourished white male in no acute distress. HEENT exam is negative. Neck reveals normal carotid upstrokes and transmitted murmur to the right carotid. No JVD. There is no thyromegaly. Cardiovascular exam reveals a regular rhythm with a 1/6 basal systolic ejection murmur. Valve sounds are crisp. No diastolic murmurs. Chest reveals a well-healed midline scar. Lungs are clear without rales, rhonchi, or wheezes. Abdomen is soft without bruits. Extremities reveal significant pitting and nonpitting edema of the left lower extremity. Several dressings noted on the left lower extremity. There is 1+ thigh edema bilaterally. Results & Data ([facility]) Vital Signs (Past 12 Hours) Vital Signs Temp Pulse Pulse Resp BP BP Pulse Ox 01/26/21 07:57 36.3 C L 60 18 95/45 L 101/45 L 92 01/26/21 07:19 36.3 C L 60 18 101/45 L 92 01/26/21 04:10 36.4 C L 60 20 89/50 L 95 01/26/21 00:55 60 01/25/21 23:00 36.4 C L 63 18 101/56 L 97 Diagnostic Findings residential monitor notes appropriate ventricular pacing. PG Care Time/CCT Total # of Minutes Spent Total Time Spent with Patient: Total time spent is greater than 50% in coordination of care (as documented) at patient's floor/unit and/or counseling patient: Coding Level of Care Code 48081 Subseq Hosp Care Lvl 3 Diagnoses Acute on chronic systolic (congestive) heart failure I50.23 Coronary artery disease I25.10 Coronary Disease-Associated Artery/Lesion type: [place] artery [place] vs. transplanted heart: [place] heart Associated angina: without angina Ischemic cardiomyopathy I25.5 S/P aortic valve replacement with bioprosthetic valve Z95.3 ICD (implantable cardioverter-defibrillator) in place Z95.810 Cirrhosis K74.60; R18.8 Hepatic cirrhosis type: unspecified hepatic cirrhosis Ascites presence: with ascites (1) Coronary artery disease Coronary Disease-Associated Artery/Lesion type: [place] artery [place] vs. transplanted heart: [place] heart Associated angina: without angina Qualified Code(s): I25.10 - Atherosclerotic heart disease of [place] coronary artery without angina pectoris (2) Cirrhosis Hepatic cirrhosis type: unspecified hepatic cirrhosis Ascites presence: with ascites Qualified Code(s): K74.60 - Unspecified cirrhosis of liver; R18.8 - Other ascites
--- NOTE | 2021-01-26 09:40 | Discharge Summary ---
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 He reports increasing shortness of breath and fatigue for the past 2-3 weeks. Associated weight gain of 30-35 lb increase over same time period, bilateral leg swelling and abdominal distension. His left leg is usually larger than his right ever since his venous bypass graft was taken from that side. No chest pain, orthopnea, PND or palpitations. No fever, chills He also notes a water blister that appeared on his left lower extremity. Unknown how long he had this. His peeled off the skin 4 days ago and it has started forming granulation tissue around this. No significant worsening of erythema surrounding this, it does no track up leg but some spread of erythema with gravity posteriorly. Area marked in the ER. In the ER labs were concerning for EVETTE with CXR showing evidence of mild CHF. He was referred to medicine for admission and ongoing management of EVETTE, hypervolemia. Admission Exam Per Admitting Provider Constitutional: well developed and well nourished; no acute distress Eyes: PERRL, conjunctivae normal, anicteric sclerae ENMT: external ear and nose normal, oropharynx normal Neck: trachea midline Thyroid: no thyromegaly Respiratory: normal respiratory effort; no respiratory distress Auscultation: + diminished lung sounds (bibasal); no crackles and no wheezes Cardiovascular: Rate/Rhythm: regular rate and regular rhythm Heart Sounds: no murmur Vessels: + JVD Extremities: normal capillary refill, + pedal edema (L 3+ > R 2+ to abdomen) and + edema (Generalized anasarca) Gastrointestinal (Abdomen): Inspection/Auscultation: + abdomen distended and normal bowel sounds Percussion/Palpation: abdomen soft; abdomen nontender, no guarding and abdomen not rigid Musculoskeletal: no cyanosis or clubbing, extremities motor strength 5/5 (limited movement of LLE due to size) Skin: + ulcer (granulation tissue over 5cm circular ulcer LLE) and + erythema (mild surrounding LLE ulcer marked, tracking with gravity only) Neurologic: moves all extremities and awake; not confused Psychiatric: A+Ox3, euthymic affect Genitourinary: no CVA tenderness Principal Diagnosis Left lower extremity cellulitis Discharge Exam GENERAL : No acute distress. In bedside chair EYES: No icterus, gaze conjugate NOSE: No evidence of epistaxis MOUTH: No lesions or candidiasis. Mucosa moist NECK: Supple LUNGS: Fine crackles in the bilateral bases. No bronchospasm or rhonchi appreciated HEART: Regular, rate controlled ABDOMEN: Soft, NT, ND, BS Present. Ascites improved EXTREMITIES: +4 left LE edema, +2 right LE edema, pedal pulses intact and equal bilaterally. No appreciation of drainage or oozing from left lower extremity NEURO: A&OX3 Discharge Data Allergies Allergy/AdvReac Type Severity Reaction Status Date / Time No Known Allergies Allergy Verified 01/20/21 10:16 Consultations 01/20/21 10:32 ED Decision to Admit Stat 01/20/21 10:34 Consult Health Information Management Stat 01/20/21 14:03 Consult Cardiology Routine [facility] CHF Program Referral Routine 01/20/21 15:12 Consult Health Information Management Routine 01/21/21 07:36 Consult Endocrinology Routine 01/21/21 12:12 Consult Gastroenterology Routine 01/22/21 17:59 Consult Nephrology Routine Ordered Studies 01/20/21 10:32 US renal/blad retro comp Stat 01/20/21 10:51 US venous doppler LE LT Stat 01/20/21 16:00 US liver Routine 01/20/21 17:00 US thyroid Routine 01/21/21 12:04 US paracentesis abd w/image Routine 01/25/21 13:00 US paracentesis abd w/image Routine Hospital Course (1) Cellulitis: Left lower extremity with scant drainage Blood cultures x2 with no growth to date. (Blood cultures drawn 01/20/2021) Afebrile Started antibiotic treatment 01/21/2021 with cefazolin and vancomycin for 7-day course No growth on blood cultures so vancomycin discontinued Cefazolin discontinued and patient started on Keflex 500 mg p.o. 4 times daily on 01/22/2021 Continue two more days of antibiotic treatment with Keflex Continue to follow with wound care clinic (2) Acute systolic CHF (congestive heart failure): Currently being diuresed with furosemide twice daily Creatinine is stable Continue with daily weights (Note-patient is status post paracentesis with 5 L removed last Monday and an additional 4.5 L removed today) Preserved left ventricular ejection fraction of 45% Continue Coreg Discussed patient with the heart failure clinic office coordinator. He will be followed in the office on discharge. (3) Acute kidney injury superimposed on CKD: Creatinine today is stable * Baseline appears to be 1.36 Nephrology has been consulted. Appreciate Dr. Joseph's input Follow-up with Dr. Hunt on discharge Continue with diuresis and encourage negative fluid balance Continue daily weights follow serial labs (4) Ascites: Status post paracentesis with 5 L evacuated followed by administration of 40 g of albumin on 01/22/2021 Repeat paracentesis with additional 4.5 L evacuated01/25/2021. Will administer an additional 40 g of albumin prior to discharge Peritoneal fluid from 01/22/2021 negative for malignancy Repeat labs are of been requested and were pending at the time of discharge (5) Primary hypothyroidism: Suspect etiology to be amiodarone use Discussion with Dr. Souza per Dr. Daniels's note IV levothyroxine 12.5 mcg IV daily Plan was to change to 25 mcg p.o. daily once more euvolemic and then discharge on levothyroxine 50 mcg p.o. daily Patient changed to levothyroxine 50 mcg p.o. daily on 01/22/2021 Further outpatient management (6) Cirrhosis: GI consulted Meld score 15 SAAG less than 1.1 so concern for nephrotic syndrome/cancer We will need outpatient EGD for varices (7) Ventricular dysrhythmia: Patient with implantable ICD Amiodarone has been discontinued and will "remain in system for months" per discussion with cardiology No need for further dysrhythmic medication at this time Outpatient follow-up with cardiology (8) Coronary artery disease: CABG in 1998 Vein harvesting from left lower extremity at that time Continue aspirin, carvedilol, and atorvastatin Home lisinopril is held secondary to acute renal failure * Continue lisinopril on discharge Continue to follow on medical telemetry (9) Abnormal ultrasound of bladder: No hematuria at this time There is a 19 mm nonspecific posterior bladder nodule. Outpatient follow-up with urology Urine cytology negative for high grade urothelial carcinoma (10) S/P aortic valve replacement with bioprosthetic valve: Not anticoagulated Patient reports no history of any issues with valve since replacement Echocardiogram with well-seated prosthetic aortic valve with normal gradient Further outpatient management (11) DVT prophylaxis: Heparin subcutaneously Ambulate as tolerated by patient Venous Doppler on 01/20/2021 - for DVT of left lower extremity Disposition: Patient discharged home with home health. Total Time Total Time Spent Total Time Spent (In Minutes): Thirty-five Total Time Includes: Examination of the Patient, Discharge Planning, Medication Reconciliation and Communication With Other Providers Discharge Plan Discharge Items Patient Disposition: Home - Home Health Services Reason For Visit: VEETTE,HYPERVOLEMIA Discharge Diagnosis: Left lower extremity cellulitis Ascites secondary to cirrhosis Activity: Resume your previous activity Bathing: No limitations Sexual Activity: When tolerated Exercise/Sports: Gradually increase as tolerated Weightbearing: Full weightbearing Non-emergency contact: Primary Care Provider Call non-emergency contact if: you have any medication questions, your symptoms worsen and you have a fever Follow-up/Referrals: Michela Sanchez PA-C [Physician Documentum Consultant] - 02/01/21 2:00 pm (Congestive Heart Failure Program Appointment Information Early follow up is essential to managing your heart failure. An appointment has been scheduled for you with the [facility] Heart Failure Program within 7 days of discharge. Anticipate this visit to be 30-60 minutes long. Please expect a hog operator phone call from one of our nurses approximately 48 hours from discharge. They will also be placing an order for lab work to be completed 1-2 days prior to your heart failure follow up appointment. Please be sure to have this done so we can go over the results when you come in. Office Location The cardiology office building is located in front of the hospital at [address] [facility]. Bring the following with you to your follow-up doctor appointments: Please bring your daily weight log any discharge paperwork all of your medication bottles with you to this visit. ) Maday Stewart PA-C [Primary Care Provider] - Diet: Heart Healthy Fluids: 1500ml (6 cups) Addtl Attending Provider Instructions: You were admitted with left lower extremity cellulitis. Continue take your antibiotics and other medications as directed. If you develop fever or abdominal pain where you had your paracentesis, come to the emergency department or call your family doctor for evaluation. Please keep all medical appointments as scheduled. Addtl Pulverizer Tender Provider Instructions: Call your Primary Care doctor if any of the following symptoms or problems start or get worse: * Shortness of breath or difficulty breathing * Wake up at night short of breath * Chest pain * Cough * Swelling of your hands, feet, or legs * More fatigued or tired with your normal activity * Palpitations - sudden fast heart beats WEIGHT * Weigh yourself every morning after using the bathroom. * Use the same scale. * Wear the same amount of clothing. * Write your weight down on a chart. * Call your Primary Care doctor if you gain more than 2-3 pounds in 1-2 days. MEDICATIONS * Use this discharge instruction sheet for medication instructions. * Take your medications at the time your doctor ordered. * Do not skip a dose of your medicines. * If you miss a dose of medicine, take it as soon as possible, but DO NOT DOUBLE A DOSE. * Read your medicine information when you get home. * Know all of the side effects of your medicine. If in doubt, ask your pharmacist * Call your Primary Care doctor's office if you have any side effects. * Be sure all of your doctors know what medicine and herbs you take (including cold, flu, and herbal medicine). Take the following with you to your follow-up doctor appointments: * Weight Chart * Medication List * List of questions Do not drink excessive alcohol, beer or wine. Pending Studies at Discharge: Yes Studies:: Laboratory studies from paracentesis performed 01/25/2021 Stand-Alone Forms: My [facility] Medications and DC Order Prescriptions: New levothyroxine [Synthroid] 50 mcg Tablet 50 mcg PO DAILYBB Qty: 30 RF: 0 cephalexin 500 mg Capsule 500 mg PO BID Qty: 4 RF: 0 Continued furosemide 40 mg tablet 40 mg PO DAILY Qty: 90 RF: 3 aspirin 81 mg tablet,delayed release (DR/EC) 81 mg PO DAILY RF: 0 atorvastatin 10 mg tablet 10 mg PO DAILY Qty: 90 RF: 0 carvedilol 3.125 mg tablet 3.125 mg PO BID RF: 0 nitroglycerin 0.4 mg tablet, sublingual 0.4 mg SL Q5M PRN (Reason: Chest Pain) RF: 0 cholecalciferol (vitamin D3) 25 mcg (1,000 unit) capsule 1,000 unit PO DAILY RF: 0 cyanocobalamin (vitamin B-12) [Vitamin B-12] 500 mcg Tablet 500 mcg PO DAILY RF: 0 omega-3 fatty acids Capsule 1,000 mg PO DAILY RF: 0 vitamin B complex Tablet 1 tab PO DAILY RF: 0 Centrum Silver Men 300-600-300 mcg Tablet 1 tab PO DAILY RF: 0 Discontinued amiodarone 200 mg tablet 200 mg PO DAILY RF: 0 lisinopril 2.5 mg tablet 2.5 mg PO DAILY RF: 0 diphenhydramine-acetaminophen [Tylenol PM Extra Strength] 25-500 mg Tablet 1 tab PO HS PRN (Reason: Sleep) RF: 0 Discharge Orders: Discharge Order (Routine); Ordered 01/26/21 Ordered By: Beto Martin Admission Data Admit Date/Time: 01/20/21 10:47 Attending Provider: Ramy Bliss Admit Provider: Geraldo Connelly Primary Care Provider: Maday Stewart Other Providers: Geraldo Connelly ; Jose Hernandez ; Michela Sanchez ; Cordell Souza ; Butch Mckeon ; Amanda Hunt ; [facility] Other Interventions: Discharge Summary Assessment (RN) Last Done: 01/26/21 07:57 Coding Level of Care Code D/C Day Management >30 mins Diagnoses Cellulitis L03.116 Laterality: left Site of cellulitis: extremity Site of cellulitis of extremity: lower extremity Acute systolic CHF (congestive heart failure) I50.21 Acute kidney injury superimposed on CKD N17.9; N18.9 Ascites R18.8 Primary hypothyroidism E03.9 Cirrhosis K74.60; R18.8 Ascites presence: with ascites Hepatic cirrhosis type: unspecified hepatic cirrhosis Ventricular dysrhythmia I49.9 Coronary artery disease I25.10 Associated angina: without angina Coronary Disease-Associated Artery/Lesion type: [place] artery [place] vs. transplanted heart: [place] heart Abnormal ultrasound of bladder R93.41 S/P aortic valve replacement with bioprosthetic valve Z95.3 DVT prophylaxis Z29.9 Time Spent (min) 35
== END 2021-01-26 10:01 | disposition home health service (06) | DRG 292 ==
LOC: ED 09:07 → 2N 10:47 → SUATTDRO 10:47 → 2N 13:24 → 2W 01-26 02:38